=== PATIENT | female | born 1995 | race Caucasian/White ===

== ENCOUNTER 2016-04-06 20:32 | Emergency (ER) | payer MEDICAID ==
[~2016-04-06] VITALS: Ht 160 cm; Wt 68.2 kg
[~2016-04-06 20:32] MED LIST: CODE-54 PO; DCS100C PO; Ibuprofen PO; OMEP20CA12 PO; PREN1TAB19 PO
--- OUTSIDE RECORDS SUMMARY | 2016-04-06 20:39 | XMS REPORT | Continuity of Care Document ---
Author Author [facility] Organization [facility] Address Unknown Phone Unavailable Care Team Providers Care Greenhouse Instructor Name Role Phone RUBÉN MENDEZ DO PCP Insurance Providers Payer Name Policy Number Subscriber Name Relationship [facility] [id number] Yasmine Wren 18 Self / Same As Patient Advance Directives Directive Response Recorded Date/Time Advance Directives No 10/30/13 2:53am Health Care Power of Supervising Bailiff No 10/30/13 2:53am Organ Donor Yes 10/30/13 2:53am Resuscitation Status Full Code 10/30/13 2:53am Problems No known problems or medical conditions. Medications Medication Dose Route Sig Days/Qty Instructions Order Date Discontinued Date Status Omeprazole 1 Cap PO DAILY 30 Qty 12/23/11 10/28/13 Discontinued Vit/Fe Fumarate/Fa 1 Each PO DAILY 10/28/13 Active Acetaminophen/Codeine 1-2 Tab PO EVERY 4HRS PRN MODERATE TO SEVERE PAIN 30 Qty 11/01/13 Active Docusate Sodium 100 Mg PO TWICE A DAY 20 Qty 11/01/13 Active [Ibuprofen] 600 Mg PO EVERY 6 HOURS 60 Qty 11/01/13 Active Social History Social History Problem Response Recorded Date/Time Alcohol Use Denies Use 10/30/2013 11:42am Recreational Drug Use No 10/30/2013 11:42am Recent Foreign Travel No 10/30/2013 11:42am Recent Infectious Disease Exposure No 10/30/2013 11:42am Hospitalization with Isolation Denies 11/01/2013 7:07pm Smoking Status Current Everyday Smoker 10/30/2013 2:52am Do you dip or chew tobacco? No 10/30/2013 2:52am Query Response Start Date Stop Date Smoking Status Current Everyday Smoker Hospital Discharge Instructions Patient Instructions Physician Instructions New, Converted or Re-Newed RX: Call to Patients Pharmacy Additional Follow Up: Yes Orders/Referrals Follow-up [address] Mendez Activity: Activity as Tolerated Driving Instructions: No Driving for 1 Week NO SMOKING: NO SMOKING Nothing Inside Vagina: No Douching, No [place], No Tampons Discharge Diet: No Restrictions Symptoms to Report to : Pain Increased, Fever Over 101 Degrees F, Vaginal Bleeding Increase, Cramps in Feet or Legs, Lightheadedness For Any Problems or Questions: Contact Your Physician Bathing Instructions: Shower Plan of Care Discharge Date 11/01/13 6:30pm Disposition 01 HOME, SELF-CARE Instructions/Education Provided DISCHARGE VAGINAL DELIVERY DISCHARGE Prescriptions See Medications Section Referrals RUBÉN MENDEZ DO (Unspecified) 12/12/13 Address: [address] [place] [address] Functional Status Query Response Date Recorded Patient Orientation Person Place Time Situation Normal For Age November 01, 2013 7:07pm Allergies, Adverse Reactions, Alerts Allergen Type Severity Reaction Status Last Updated No Known Drug Allergies Active 07/02/09 Immunizations Name Given Type Date of Influenza Vaccine 10/26/11 Historical Hepatitis A Yes Historical Hepatitis B Yes Historical Tetanus Booster (TDap) Unknown Historical Tdap 11/01/13 Administered Tdap 11/01/13 Administered Vital Signs Acute Vital Signs Vital Response Date/Time Temperature (Fahrenheit) 98.2 degrees F (97.6 - 99.5) Temperature (Calculated Celsius) 36.11137 degrees C (36.4 - 37.5) Temperature Source Tympanic Pulse Rate (adult) 90 bpm (60 - 90) Respiratory Rate 18 bpm (12 - 24) O2 Sat by Pulse Oximetry 97 % (88 - 100) Blood Pressure 98/53 mm Hg Pain Pain Intensity 3 Pain Pain Intensity 3 Height (Feet) 5 feet Height (Inches) 3.00 inches Height (Calculated Centimeters) 160.957969 cm Weight (Pounds) 174 pounds Weight (Ounces) 4.0 oz Weight (Calculated Grams) 50785.073 gm Weight (Calculated Kilograms) 78.590012 kilograms Calculated BMI 30.82 Results Test Source Date Result Interp. Ref. Range Comments Alanine Aminotransferase (ALT/SGPT) December 23, 2011 1:00pm 37 U/L N 30- 65 Albumin December 23, 2011 1:00pm 4.8 G/DL N 3.4-5.0 Alkaline Phosphatase December 23, 2011 1:00pm 117 U/L N 60-350 Amylase Level December 23, 2011 1:00pm 54 U/L N 25-115 Aspartate Amino Transf (AST/SGOT) December 23, 2011 1:00pm 19 U/L N 15- 37 BUN/Creatinine Ratio December 23, 2011 1:00pm 11 - Band Neutrophils July 02, 2009 9:52am 0 % - Basophils # (Auto) December 23, 2011 1:00pm 0.1 10^3/uL N 0.0-0.1 Basophils % (Manual) July 02, 2009 9:52am 0 % - Basophils (%) (Auto) December 23, 2011 1:00pm 1 % N 0-10 Blood Urea Nitrogen December 23, 2011 1:00pm 11 MG/DL N 7-18 Calcium Level December 23, 2011 1:00pm 9.3 MG/DL N 8.5-10.1 Carbon Dioxide Level December 23, 2011 1:00pm 32 MMOL/L N 21-32 Chloride Level December 23, 2011 1:00pm 100 MMOL/L L 101-110 Creatinine December 23, 2011 1:00pm 1.0 MG/DL N 0.6-1.3 Eosinophils # (Auto) December 23, 2011 1:00pm 0.1 10^3/uL N 0.0-0.3 Eosinophils % (Manual) July 02, 2009 9:52am 2 % - Eosinophils (%) (Auto) December 23, 2011 1:00pm 1 % N 0-10 Glucose Level December 23, 2011 1:00pm 83 MG/DL N 74-106 Hematocrit December 23, 2011 1:00pm 45 % N 35-52 Hemoglobin December 23, 2011 1:00pm 15.6 G/DL N 11.5-16.0 Lipase December 23, 2011 1:00pm 126 U/L N 73-393 Lymphocytes # (Auto) December 23, 2011 1:00pm 2.7 X 10^3 N 1.0-4.0 Lymphocytes % (Manual) July 02, 2009 9:52am 19 % - Lymphocytes (%) (Auto) December 23, 2011 1:00pm 29 % N 12-44 Magnesium Level July 04, 2009 6:55am 1.6 MG/DL L 1.8-2.4 Mean Corpuscular Hemoglobin December 23, 2011 1:00pm 30 PG N 25-34 Mean Corpuscular Hemoglobin Concent December 23, 2011 1:00pm 35 G/DL N 32 -36 Mean Corpuscular Volume December 23, 2011 1:00pm 85 FL N 80-99 Mean Platelet Volume December 23, 2011 1:00pm 11.2 FL H 7.4-10.4 Monocytes # (Auto) December 23, 2011 1:00pm 0.6 X 10^3 N 0.0-1.0 Monocytes % (Manual) July 02, 2009 9:52am 6 % - Monocytes (%) (Auto) December 23, 2011 1:00pm 6 % N 0-12 Neutrophils # (Auto) December 23, 2011 1:00pm 5.9 X 10^3 N 1.8-7.8 Neutrophils % (Manual) July 02, 2009 9:52am 70 % - Neutrophils (%) (Auto) December 23, 2011 1:00pm 63 % N 42-75 Platelet Count December 23, 2011 1:00pm 329 10^3/uL N 130-400 Potassium Level December 23, 2011 1:00pm 3.4 MMOL/L L 3.6-5.0 Reactive Lymphocytes July 02, 2009 9:52am 3 % - Red Blood Count December 23, 2011 1:00pm 5.24 10^6/uL N 4.35-5.85 Red Cell Distribution Width December 23, 2011 1:00pm 12.6 % N 10.0-14.5 Sodium Level December 23, 2011 1:00pm 138 MMOL/L N 135-145 Total Bilirubin December 23, 2011 1:00pm 0.4 MG/DL N 0.0-1.0 Total Protein December 23, 2011 1:00pm 9.0 G/DL H 6.4-8.2 Urine Bacteria July 02, 2009 9:56am LARGE H - Has specimen been collected/obtained? YSpecimen Description CLEAN CATCH Urine Bilirubin July 02, 2009 9:56am NEGATIVE - Has specimen been collected/obtained? YSpecimen Description CLEAN CATCH Urine Casts July 02, 2009 9:56am NONE - Has specimen been collected/ obtained? YSpecimen Description CLEAN CATCH Urine Clarity July 02, 2009 9:56am CLEAR - Has specimen been collected /obtained? YSpecimen Description CLEAN CATCH Urine Color July 02, 2009 9:56am YELLOW - Has specimen been collected/ obtained? YSpecimen Description CLEAN CATCH Urine Crystals July 02, 2009 9:56am NONE - Has specimen been collected /obtained? YSpecimen Description CLEAN CATCH Urine Culture Indicated July 02, 2009 9:56am YES - Has specimen been collected/obtained? YSpecimen Description CLEAN CATCH Urine Glucose (UA) July 02, 2009 9:56am NEGATIVE - Has specimen been collected/obtained? YSpecimen Description CLEAN CATCH Urine Ketones July 02, 2009 9:56am NEGATIVE - Has specimen been collected/obtained? YSpecimen Description CLEAN CATCH Urine Leukocyte Esterase July 02, 2009 9:56am NEGATIVE - Has specimen been collected/obtained? YSpecimen Description CLEAN CATCH Urine Mucus July 02, 2009 9:56am SMALL H - Has specimen been collected/ obtained? YSpecimen Description CLEAN CATCH Urine Nitrite July 02, 2009 9:56am NEGATIVE - Has specimen been collected/obtained? YSpecimen Description CLEAN CATCH Urine Test February 01, 2012 1:10pm NEGATIVE - Comments to Supervisor [place] Pool: PREOPSpecimen Comment: URINE IN LAB ALREADY Urine Protein July 02, 2009 9:56am NEGATIVE - Has specimen been collected/obtained? YSpecimen Description CLEAN CATCH Urine RBC July 02, 2009 9:56am NONE /HPF - Has specimen been collected /obtained? YSpecimen Description CLEAN CATCH Urine Specific [place] July 02, 2009 9:56am 1.010 L - Has specimen been collected/obtained? YSpecimen Description CLEAN CATCH Urine Squamous Epithelial Cells July 02, 2009 9:56am 5-10 - Has specimen been collected/obtained? YSpecimen Description CLEAN CATCH Urine Urobilinogen July 02, 2009 9:56am NORMAL MG/DL - Has specimen been collected/obtained? YSpecimen Description CLEAN CATCH Urine WBC July 02, 2009 9:56am 2-5 /HPF - Has specimen been collected/ obtained? YSpecimen Description CLEAN CATCH Urine pH July 02, 2009 9:56am 7.0 - Has specimen been collected/ obtained? YSpecimen Description CLEAN CATCH White Blood Count December 23, 2011 1:00pm 9.3 10^3/uL N 4.3-11.0 Blood Morphology Comment July 02, 2009 9:52am NORMAL - Urine RBC (Auto) July 02, 2009 9:56am NEGATIVE - Has specimen been collected/obtained? YSpecimen Description CLEAN CATCH Gram Stain Other July 03, 2009 5:45pm Urine Culture Urine-Clean Catch July 02, 2009 9:56am Procedures No known history of procedures. Encounters Encounter Location Date/Time Discharged Inpatient Via [facility] 10/30/13 7:58am Departed Clinic Via [facility] 10/28/13 2:03pm
[2016-04-06] MEDS ORDERED: NS IV 1000 ML 1,000 ML IV ONE (21:59)
[2016-04-06] MEDS ORDERED: ONDANSETRON 4 MG/2 ML (SDV) Z0FRAN IVP ONE (22:00)
--- NOTE | 2016-04-06 22:05 | ED GU-Female ---
General Chief Complaint: Abdominal/GI Problems Stated Complaint: 5 WKS PREG/VOMITING Nursing Triage Note: Pt c/o nausea x1 week and vomiting x5 today. Pt reports she is but has not yet been to doctor for first appt. LMP 02/24/16 Nursing Sepsis Screen: No Definite Risk Source: patient Exam Limitations: no limitations History of Present Illness Time seen by provider: 22:05 Initial Comments 21-year-old female patient presents to the emergency department with complaints of vomiting 5 today. Patient reports having nausea for approximately one week. Patient states she recently found out she was and has her first appointment in a couple of weeks. Last ventral. 02/24/16. Denies vaginal discharge, vaginal bleeding, fever, dysuria, frequency, hematuria. Timing/Duration: week, intermittent Severity/Quality: mild Activities at Onset: none Prior Genitourinary Problems: none Sexual [place] History: less than 2 months ago, single partner Modifying Factors: Worsens With Eating Allergies and Home Medications Allergies Coded Allergies: No Known Drug Allergies (Unverified , 07/02/09) Home Medications Cephalexin 500 Mg Capsule #9 500 MG PO TID Prescribed by: KUSH CASTRO on 04/06/16 2321 Cephalexin 500 Mg Tablet #14 500 MG PO BID Prescribed by: GARTH ABRAHAM on 04/10/16 1121 Doxylamine/Pyridoxine HCl 1 Each Tablet.dr #30 1 EACH PO BID PRN PRN NAUSEA/ VOMITING Prescribed by: KUSH CASTRO on 04/06/16 2321 Ondansetron 4 Mg Tab.rapdis #30 4 MG PO Q6H PRN PRN NAUSEA/VOMITING Prescribed by: GARTH ABRAHAM on 04/10/16 1121 Constitutional: No chills, No diaphoresis, No dizziness, No fever, No malaise EENTM: no symptoms reported Respiratory: no symptoms reported Cardiovascular: no symptoms reported Gastrointestinal: No abdominal pain, No constipation, No diarrhea, loss of appetite nausea vomiting Genitourinary: denies burning, denies discharge, denies dysuria, denies frequency, denies flank pain, denies hematuria, denies pain : Yes LMP: Feb 24, 2016 Musculoskeletal: no symptoms reported Skin: no symptoms reported Psychiatric/Neurological: No Symptoms Reported All Other Systemes Reviewed Negative Unless Noted: Yes (Negative excepted noted.) Past Kwckfzb-Bveees-Jtevyx Hx Patient Social History Alcohol Use: Denies Use Recreational Drug Use: No Smoking Status: Never a Smoker Recent Foreign Travel: No Contact w/Someone Who Travel: No Recent Infectious Disease Expo: No Recent Hopitalizations: No Immunizations Up To Date Tetanus Booster (TDap): Unknown PED Vaccines UTD: No Date of Influenza Vaccine: Oct 26, 2011 Seasonal Allergies Seasonal Allergies: No Surgeries HX Surgeries: Yes Surgeries: Appendectomy Respiratory Hx Respiratory Disorders: No Cardiovascular Hx Cardiac Disorders: No Neurological Hx Neurological Disorders: No Reproductive System : Yes Hx : 0 Hx Para: 0 Hx Total # of Abortions (Spona: 0 Hx Reproductive Disorders: No Female Reproductive Disorders: Denies Genitourinary Hx Genitourinary Disorders: No Gastrointestinal Hx Gastrointestinal Disorders: Yes Gastrointestinal Disorders: Hiatal Hernia, Ulcer Musculoskeletal Hx Musculoskeletal Disorders: No Endocrine Hx Endocrine Disorders: No HEENT HX ENT Disorders: No Cancer Hx Cancer: No Psychosocial Hx Psychiatric Problems: No Integumentary HX Skin/Integumentary Disorder: No Blood Transfusions Hx Blood Disorders: No Adverse Reaction to a Blood Tr: No Reviewed Nursing Assessment Reviewed/Agree w Nursing PMH: Yes Family Medical History Significant Family History: No Pertinent Family Hx Physical Exam Vital Signs Capillary Refill : Less Than 3 Seconds General Appearance: WD/WN no apparent distress HEENT: PERRL/EOMI pharynx normal Neck: supple normal inspection Cardiovascular: normal peripheral pulses regular rate, rhythm no edema no murmur Respiratory: lungs clear normal breath sounds no respiratory distress Gastrointestinal: normal bowel sounds non tender soft no organomegalyNo distended Back: normal inspection no CVA tenderness Extremities: no pedal edema normal capillary refill Neurologic/Psychiatric: alert normal mood/affect oriented x 3 Skin: normal color warm/dry Progress/Results/Core Measures Results/Orders Lab Results My Orders Medications Given in ED Vital Signs/I&O Blood Pressure Mean: 74 Departure Communication Progress Notes Laboratory findings discussed with the patient. Patient reports feeling better with IV fluids and medications. Proceed with discharge to home. All return precautions were discussed with the patient as described in the discharge instructions of this report. Patient voices understanding and agrees with the treatment plan. Patient case discussed with Dr. Baptiste, he agrees with the plan of care. Impression Impression: Primary Impression: Volume depletion Additional Impressions: Nausea & vomiting Qualified Code: R11.2 - Nausea with vomiting, unspecified with 5 completed weeks gestation Disposition: 01 HOME, SELF-CARE Condition: Improved Departure-Patient Inst. Decision time for Depature: 23:20 Referrals: RUBÉN MENDEZ DO (PCP/Family) Primary Care Physician Patient Instructions: Nausea and Vomiting of (DC), - The Second Month Add. Discharge Instructions: All discharge instructions reviewed with patient and/or family. Voiced understanding. Medications as instructed. Tylenol [id number] as directed for pain or fever. Drink plenty of fluids. Rest. Follow-up with Dr. Mendez as previously scheduled. Return to the emergency department for worsened vomiting, decreased urination, dizziness, shortness of air, chest pain , vaginal discharge, vaginal bleeding with greater than 2 pads per hour for greater than 2 hours, or any other concerns. Scripts Cephalexin 500 Mg [id number] Mg PO TID #9 CAP Ref 0 Prov:KUSH CASTRO 04/06/16 Doxylamine/Pyridoxine HCl (Diclegis Dr 10-10 mg Tablet)1 Each Tablet.dr1 Each PO BID PRN NAUSEA/VOMITING #30 TAB Ref 0 Prov:KUSH CASTRO 04/06/16 KUSH CASTRO Apr 06, 2016 22:05 Chloride Level 104 98-107 MMOL/L Creatinine 0.73 0.60-1.30 MG/DL Eosinophils # (Auto) 0.1 0.0-0.3 10^3/uL Eosinophils (%) (Auto) 1 0-10 % Estimat Glomerular Filtration Rate > 60 Glucose Level 84 70-105 MG/DL Hematocrit 41 35-52 % Hemoglobin 14.5 11.5-16.0 G/DL Lymphocytes # (Auto) 2.9 1.0-4.0 X 10^3 Lymphocytes (%) (Auto) 21 12-44 % Mean Corpuscular Hemoglobin 30 25-34 PG Mean Corpuscular Hemoglobin Concent 35 32-36 G/DL Mean Corpuscular Volume 83 80-99 FL Mean Platelet Volume 11.2 H 7.4-10.4 FL Monocytes # (Auto) 0.7 0.0-1.0 X 10^3 Monocytes (%) (Auto) 5 0-12 % Neutrophils # (Auto) 9.6 H 1.8-7.8 X 10^3 Neutrophils (%) (Auto) 72 42-75 % Platelet Count 261 130-400 10^3/uL Potassium Level 3.6 3.6-5.0 MMOL/L Red Blood Count 4.92 4.35-5.85 10^6/uL Red Cell Distribution Width 12.8 10.0-14.5 % Sodium Level 136 135-145 MMOL/L Total Bilirubin 0.6 0.1-1.0 MG/DL Total Protein 7.3 6.4-8.2 G/DL White Blood Count 13.3 H 4.3-11.0 10^3/uL My Orders Orders-KUSH CASTRO Cbc With Automated Diff (04/06/16 21:59) Comprehensive Metabolic Panel (04/06/16 21:59) Ua Culture If Indicated (04/06/16 21:59) Urine Bedside (04/06/16 21:59) Ns Iv 1000 Ml (Sodium Chloride 0.9%) (04/06/16 21:59) Ondansetron Injection (Zofran Injectio (04/06/16 22:00) Saline Lock/Iv-Start (04/06/16 22:40) Medications Given in ED Current Medications Medications Dose Ordered Sig/Kelsey Route Start Time Stop Time Status Last Admin Dose Admin Ondansetron HCl 4 mg ONCE ONCE IVP 04/06/16 22:00 04/06/16 22:01 DC 04/06/16 22:41 4 MG Sodium Chloride 1,000 ml @ 0 mls/hr Q0M ONCE IV 04/06/16 21:59 04/06/16 22:00 DC 04/06/16 22:41 999 MLS/HR Vital Signs/I&O Vital Sign - Last 12Hours 04/06/16 21:28 Temp 96.8 Pulse 69 Resp 18 B/P 103/59 Pulse Ox 100 O2 Delivery Room Air Blood Pressure Mean: 74 Departure Impression Impression: Primary Impression: Volume depletion Additional Impressions: Nausea & vomiting Qualified Code: R11.2 - Nausea with vomiting, unspecified with 5 completed weeks gestation Disposition: 01 HOME, SELF-CARE Condition: Improved Departure-Patient Inst. Decision time for Depature: 23:20 Referrals: RUBÉN MENDEZ DO (PCP/Family) Primary Care Physician Patient Instructions: Nausea and Vomiting of (DC), - The Second Month Add. Discharge Instructions: All discharge instructions reviewed with patient and/or family. Voiced understanding. Medications as instructed. Tylenol [id number] as directed for pain or fever. Drink plenty of fluids. Rest. Follow-up with Dr. Mendez as previously scheduled. Return to the emergency department for worsened vomiting, decreased urination, dizziness, shortness of air, chest pain , vaginal discharge, vaginal bleeding with greater than 2 pads per hour for greater than 2 hours, or any other concerns. Scripts Cephalexin 500 Mg [id number] Mg PO TID #9 CAP Ref 0 Prov:KUSH CASTRO 04/06/16 Doxylamine/Pyridoxine HCl (Diclegis Dr 10-10 mg Tablet)1 Each Tablet.dr1 Each PO BID PRN NAUSEA/VOMITING #30 TAB Ref 0 Prov:KUSH CASTRO 04/06/16 KUSH CASTRO Apr 06, 2016 22:05
[2016-04-06 22:16] LABS: BILIRUBIN,URINE NEGATIVE (NEGATIVE); KETONES,URINE 4+ (NEGATIVE); LEUKOCYTE ESTERASE ,URINE 2+ (NEGATIVE); NITRITE,URINE NEGATIVE (NEGATIVE); PH,URINE 6 (5-9); PROTEIN,URINE NEGATIVE (NEGATIVE); UROBILINOGEN,URINE NORMAL (NORMAL)
[2016-04-06 22:48] LABS: BASOPHILS # (AUTO) 0.1 10^3/uL (0.0-0.1); BASOPHILS % (AUTO) 1 % (0-10); EOSINOPHILS # (AUTO) 0.1 10^3/uL (0.0-0.3); EOSINOPHILS % (AUTO) 1 % (0-10); LYMPHOCYTES # (AUTO) 2.9 X 10^3 (1.0-4.0); LYMPHOCYTES % (AUTO) 21 % (12-44); MEAN CORPUSCULAR HEMOGLOBIN 30 PG (25-34); MEAN CORPUSCULAR HGB CONC 35 G/DL (32-36); MEAN CORPUSCULAR VOLUME 83 FL (80-99); MEAN PLATELET VOLUME 11.2 FL (7.4-10.4); MONOCYTES # (AUTO) 0.7 X 10^3 (0.0-1.0); MONOCYTES % (AUTO) 5 % (0-12); NEUTROPHILS # (AUTO) 9.6 X 10^3 (1.8-7.8); NEUTROPHILS % (AUTO) 72 % (42-75); PLATELET COUNT 261 10^3/uL (130-400); RED BLOOD COUNT 4.92 10^6/uL (4.35-5.85); RED CELL DISTRIBUTION WIDTH 12.8 % (10.0-14.5); WHITE BLOOD COUNT 13.3 10^3/uL (4.3-11.0)
[2016-04-06 23:08] LABS: ALANINE AMINOTRANSFERASE 25 U/L (0-55); ALBUMIN 4.5 G/DL (3.2-4.5); ANION GAP 13 MMOL/L (5-14); ASPARTATE AMINO TRANSFERASE 24 U/L (5-34); BILIRUBIN,TOTAL 0.6 MG/DL (0.1-1.0); BLOOD UREA NITROGEN 10 MG/DL (7-18); BUN/CREATININE RATIO 14; CALCIUM 9.4 MG/DL (8.5-10.1); CARBON DIOXIDE 19 MMOL/L (21-32); CHLORIDE 104 MMOL/L (98-107); CREATININE SERUM 0.73 MG/DL (0.60-1.30); GFR ESTIMATED > 60; GLUCOSE 84 MG/DL (70-105); POTASSIUM 3.6 MMOL/L (3.6-5.0); SODIUM 136 MMOL/L (135-145); TOTAL PROTEIN 7.3 G/DL (6.4-8.2)
[2016-04-06] MEDS ORDERED: CEPH500C PO (23:21)
[2016-04-06] MEDS ORDERED: DOXY1TAB3 PO (23:21)
[2016-04-06] MEDS ORDERED: RX-ONDANSETRON 4 MG ODT (ZOFRAN) PPK #4 PO STA (23:26)
[2016-04-06 23:51] VITALS: BP 96/61
== END 2016-04-06 23:51 | disposition home or self-care (01) ==
LOC: EDUNIT# 20:32 → ER 20:35
DX: O21.1 Hyperemesis gravidarum with metabolic disturbance (principal); Z3A.01 Less than 8 weeks gestation of pregnancy
CPT/HCPCS: 36415; 80053; 81000; 84703; 85025; 96361; 96374

== ENCOUNTER 2016-04-10 09:11 | Emergency (ER) | payer MEDICAID ==
[~2016-04-10] VITALS: Ht 160 cm; Wt 68.0 kg
[~2016-04-10 09:11] MED LIST changes: +CEPH500C PO; +DOXY1TAB3 PO
--- OUTSIDE RECORDS SUMMARY | 2016-04-10 09:18 | XMS REPORT | Continuity of Care Document ---
Author Author [facility] Organization [facility] Address Unknown Phone Unavailable Care Team Providers Care Computer Systems Design Analyst Name Role Phone RUBÉN MENDEZ DO PCP Insurance Providers Payer Name Policy Number Subscriber Name Relationship [facility] [id number] Yasmine Wren 18 Self / Same As Patient Advance Directives Directive Response Recorded Date/Time Advance Directives No 10/30/13 2:53am Health Care Power of Shield Installer No 10/30/13 2:53am Organ Donor Yes 10/30/13 [...] SMOKING Nothing Inside Vagina: No Douching, No [place], No Tampons Discharge Diet: No Restrictions Symptoms [...] Referrals RUBÉN MENDEZ DO (Unspecified) 12/12/13 Address: [address] [place] [address] Functional Status Query Response Date Recorded Patient [...] F (97.6 - 99.5) Temperature (Calculated Celsius) 36.01454 degrees C (36.4 - 37.5) Temperature Source Tympanic Pulse Rate (adult) 90 bpm (60 - 90) Respiratory Rate 18 bpm (12 - 24) O2 Sat by Pulse Oximetry 97 % (88 - 100) Blood Pressure 98/53 mm Hg Pain Pain Intensity 3 Pain Pain Intensity 3 Height (Feet) 5 feet Height (Inches) 3.00 inches Height (Calculated Centimeters) 160.950512 cm Weight (Pounds) 174 pounds Weight (Ounces) 4.0 oz Weight (Calculated Grams) 81708.073 gm Weight (Calculated Kilograms) 78.941318 kilograms Calculated BMI 30.82 Results Test Source [...] 01, 2012 1:10pm NEGATIVE - Comments to Manager Utilities: PREOPSpecimen Comment: URINE IN LAB ALREADY Urine Protein July 02, 2009 9:56am NEGATIVE - Has specimen been collected/obtained? YSpecimen Description CLEAN CATCH Urine RBC July 02, 2009 9:56am NONE /HPF - Has specimen been collected /obtained? YSpecimen Description CLEAN CATCH Urine Specific [place] July 02, 2009 9:56am 1.010 L - [...] Encounters Encounter Location Date/Time Discharged Inpatient Via [facility] 10/30/13 7:58am Departed Clinic Via [facility] 10/28/13 2:03pm
[2016-04-10] MEDS ORDERED: NS IV 1000 ML 1,000 ML IV ONE (09:22)
[2016-04-10 09:47] LABS: BASOPHILS # (AUTO) 0.1 10^3/uL (0.0-0.1); BASOPHILS % (AUTO) 1 % (0-10); EOSINOPHILS # (AUTO) 0.1 10^3/uL (0.0-0.3); EOSINOPHILS % (AUTO) 1 % (0-10); LYMPHOCYTES % (AUTO) 17 % (12-44); MEAN CORPUSCULAR HEMOGLOBIN 30 PG (25-34); MEAN CORPUSCULAR HGB CONC 36 G/DL (32-36); MEAN CORPUSCULAR VOLUME 84 FL (80-99); MEAN PLATELET VOLUME 11.2 FL (7.4-10.4); MONOCYTES # (AUTO) 0.9 X 10^3 (0.0-1.0); MONOCYTES % (AUTO) 7 % (0-12); NEUTROPHILS # (AUTO) 8.9 X 10^3 (1.8-7.8); NEUTROPHILS % (AUTO) 75 % (42-75); PLATELET COUNT 197 10^3/uL (130-400); RED BLOOD COUNT 5.07 10^6/uL (4.35-5.85); RED CELL DISTRIBUTION WIDTH 12.7 % (10.0-14.5); WHITE BLOOD COUNT 11.9 10^3/uL (4.3-11.0)
[2016-04-10] MEDS ORDERED: PROMETHAZINE INJ 25 MG/ML (PHENERGAN) AMP IVP STA ×2 (09:48→10:51)
--- NOTE | 2016-04-10 10:00 | ED GI ---
General Chief Complaint: -Female Stated Complaint: VOMITING 6 WKS PREG Nursing Triage Note: AMBULATED TO ROOM 07 WITHOUT DIFFICULTY. STATES SHE HAS BEEN VOMITING SINCE SHE FOUND OUT SHE WAS PREG. WAS SEEN HERE ET PRESCRIBED CEPHALEXIN (SHE FINISHED) AND DICLEGIS FOR NAUSEA WHICH HER INSURANCE WOULD NOT PAY FOR SINCE IT WAS NOT PRESCRIBED FROM HER PRIMARY. PRIMARY PRESCRIBED VIT B6 WHICH SHE CAN NOT KEEP DOWN. Sepsis Screen: No Definite Risk Source of Information: Patient Exam Limitations: No Limitations History of Present Illness Time Seen By Provider: 09:45 Initial Comments Here with report of vomiting for several days. She is and is having problems with vomiting during . She is not better despite prescriptions. She has not been unable to keep anything down. She is reporting constipation. She denies any significant pain or fever. This is her second . Timing/Duration: 4-5 Days Severity/Quality: Moderate, Other (nausea and vomiting) Location: Other (no significant pain) Radiation: No Radiation Modifying Factors: Worsens With Eating Associated Symptoms: No Fever/Chills, Nausea/VomitingNo Shortness of Air, No Weakness Allergies and Home Medications Allergies Coded Allergies: No Known Drug Allergies (Unverified , 07/02/09) Home Medications Cephalexin 500 Mg Capsule #9 500 MG PO TID Prescribed by: KUSH CASTRO on 04/06/162320 Cephalexin 500 Mg Tablet #14 500 MG PO BID Prescribed by: GARTH ABRAHAM on 04/10/16 1121 Doxylamine/Pyridoxine HCl 1 Each Tablet.dr #30 1 EACH PO BID PRN PRN NAUSEA/ VOMITING Prescribed by: KUSH CASTRO on 04/06/16 232 Ondansetron 4 Mg Tab.rapdis #30 4 MG PO Q6H PRN PRN NAUSEA/VOMITING Prescribed by: GARTH ABRAHAM on 04/10/16 1121 Review of Systems Constitutional: see HPINo chills, No fever EENTM: No Symptoms Reported Respiratory: No Symptoms Reported Cardiovascular: No Symptoms Reported Gastrointestinal: See HPI ConstipatedDenies Diarrhea, Nausea Vomiting Genitourinary: Denies Frequency, Denies Incontinence, Denies Pain, Denies Urgency Musculoskeletal: no symptoms reported Skin: no symptoms reported Psychiatric/Neurological: No Symptoms Reported All Other Systems Reviewed Negative Unless Noted: Yes Past Pqoayap-Udsdyr-Chhmyq Hx Patient Social History Alcohol Use: Denies Use Recreational Drug Use: No Smoking Status: Never a Smoker Recent Foreign Travel: No Contact w/Someone Who Travel: No Recent Infectious Disease Expo: No Recent Hopitalizations: No Immunizations Up To Date Tetanus Booster (TDap): Unknown PED Vaccines UTD: No Date of Influenza Vaccine: Oct 26, 2011 Seasonal Allergies Seasonal Allergies: No Surgeries HX Surgeries: Yes Surgeries: Appendectomy Respiratory Hx Respiratory Disorders: No Cardiovascular Hx Cardiac Disorders: No Neurological Hx Neurological Disorders: No Reproductive System : Yes Hx Reproductive Disorders: No Genitourinary Hx Genitourinary Disorders: No Gastrointestinal Hx Gastrointestinal Disorders: Yes Gastrointestinal Disorders: Hiatal Hernia, Ulcer Musculoskeletal Hx Musculoskeletal Disorders: No Endocrine Hx Endocrine Disorders: No HEENT HX ENT Disorders: No Cancer Hx Cancer: No Psychosocial Hx Psychiatric Problems: No Integumentary HX Skin/Integumentary Disorder: No Blood Transfusions Hx Blood Disorders: No Adverse Reaction to a Blood Tr: No Reviewed Nursing Assessment Reviewed/Agree w Nursing PMH: Yes Family Medical History Significant Family History: No Pertinent Family Hx Physical Exam Vital Signs VS - Last 72 Hours, by Label 04/10/16 04/10/16 09:21 13:00 Temp 97.2 Pulse 96 78 Resp 18 16 B/P 149/82 Pulse Ox 100 98 O2 Delivery Room Air Capillary Refill : Less Than 3 Seconds General Appearance: WD/WN no apparent distress HEENT: PERRL/EOMI pharynx normal Neck: full range of motion supple Respiratory: lungs clear normal breath sounds Cardiovascular: regular rate, rhythm no murmur Gastrointestinal: non tender soft Extremities: non-tender normal inspection Back: normal inspection no CVA tenderness no vertebral tenderness Neurologic/Psychiatric: alert oriented x 3 Skin: normal color warm/dry Progress/Results/Core Measures Results/Orders Lab Results Laboratory Tests Test 04/10/16 09:40 04/10/16 10:25 Range/Units Alanine Aminotransferase (ALT/SGPT) 25 0-55 U/L Albumin 4.5 3.2-4.5 G/DL Alkaline Phosphatase 58 40-136 U/L Anion Gap 14 5-14 MMOL/L Aspartate Amino Transf (AST/SGOT) 28 5-34 U/L BUN/Creatinine Ratio 17 Basophils # (Auto) 0.1 0.0-0.1 10^3/uL Basophils (%) (Auto) 1 0-10 % Blood Urea Nitrogen 13 7-18 MG/DL Calcium Level 9.2 8.5-10.1 MG/DL Carbon Dioxide Level 22 21-32 MMOL/L Chloride Level 101 98-107 MMOL/L Creatinine 0.77 0.60-1.30 MG/DL Eosinophils # (Auto) 0.1 0.0-0.3 10^3/uL Eosinophils (%) (Auto) 1 0-10 % Estimat Glomerular Filtration Rate > 60 Glucose Level 85 70-105 MG/DL Hematocrit 42 35-52 % Hemoglobin 15.1 11.5-16.0 G/DL Lymphocytes # (Auto) 2.0 1.0-4.0 X 10^3 Lymphocytes (%) (Auto) 17 12-44 % Mean Corpuscular Hemoglobin 30 25-34 PG Mean Corpuscular Hemoglobin Concent 36 32-36 G/DL Mean Corpuscular Volume 84 80-99 FL Mean Platelet Volume 11.2 H 7.4-10.4 FL Monocytes # (Auto) 0.9 0.0-1.0 X 10^3 Monocytes (%) (Auto) 7 0-12 % Neutrophils # (Auto) 8.9 H 1.8-7.8 X 10^3 Neutrophils (%) (Auto) 75 42-75 % Platelet Count 197 130-400 10^3/uL Potassium Level 3.8 3.6-5.0 MMOL/L Red Blood Count 5.07 4.35-5.85 10^6/uL Red Cell Distribution Width 12.7 10.0-14.5 % Sodium Level 137 135-145 MMOL/L Total Bilirubin 0.6 0.1-1.0 MG/DL Total Protein 7.3 6.4-8.2 G/DL White Blood Count 11.9 H 4.3-11.0 10^3/uL Urine Bacteria FEW H /HPF Urine Bilirubin NEGATIVE NEGATIVE Urine Casts NONE /LPF Urine Clarity CLEAR Urine Color YELLOW Urine Crystals NONE /LPF Urine Culture Indicated YES Urine Glucose (UA) NEGATIVE NEGATIVE Urine Ketones 4+ H NEGATIVE Urine Leukocyte Esterase 2+ H NEGATIVE Urine Mucus MODERATE H /LPF Urine Nitrite NEGATIVE NEGATIVE Urine Protein 2+ H NEGATIVE Urine RBC RARE /HPF Urine RBC (Auto) NEGATIVE NEGATIVE Urine Specific [place] 1.020 1.016-1.022 Urine Squamous Epithelial Cells 10-25 H /HPF Urine Urobilinogen 1 NORMAL MG/DL Urine WBC 5-10 H /HPF Urine pH 6.5 5-9 My Orders Orders-GARTH ABRAHAM MD Cbc With Automated Diff (04/10/16 09:22) Comprehensive Metabolic Panel (04/10/16 09:22) Ua Culture If Indicated (04/10/16 09:22) Saline Lock/Iv-Start (04/10/16 09:22) Ns Iv 1000 Ml (Sodium Chloride 0.9%) (04/10/16 09:22) Promethazine Injection (Phenergan Injec (04/10/16 09:48) Urine Culture (04/10/16 10:25) D5 Ns 1000 Ml Iv Solution (Dextrose 5%/0 (04/10/16 10:51) Promethazine Injection (Phenergan Injec (04/10/16 10:51) Ceftriaxone Injection (Rocephin Injectio (04/10/16 11:15) Medications Given in ED Current Medications Medications Dose Ordered Sig/Kelsey Route Start Time Stop Time Status Last Admin Dose Admin Ceftriaxone Sodium/Sodium Chloride 50 ml @ 100 mls/hr ONCE ONCE IV 04/10/16 11:15 04/10/16 11:44 DC 04/10/16 11:21 100 MLS/HR Sodium Chloride 1,000 ml @ 0 mls/hr Q0M ONCE IV 04/10/16 09:22 04/10/16 09:23 DC 04/10/16 09:46 1,000 MLS/HR Vital Signs/I&O Vital Sign - Last 12Hours 04/10/16 04/10/16 09:21 13:00 Temp 97.2 Pulse 96 78 Resp 18 16 B/P 149/82 Pulse Ox 100 98 O2 Delivery Room Air Blood Pressure Mean: 104 Progress Note : Progress Note Seen and evaluated. IV, labs and UA ordered. Normal saline 1 L bolus. Patient has distant nausea currently. Phenergan 12.5 mg IV ordered. Monitor patient. Repeat Phenergan 12.5 mg IV for persistent nausea. This did help. UA noted with UTI and 4+ ketones. D5NS 1 L bolus. Rocephin 1 g IV. I did discuss the case with Dr. Rosario at 1110. He is recommending outpatient Zofran due to persistent nausea and vomiting as outpatient and he will follow her. We will continue outpatient therapy of oral antibiotics as well. Discharged home with return precautions. Patient verbalize understanding instructions and agreement with plan. Departure Impression Impression: Primary Impression: Hyperemesis gravidarum Disposition: 01 HOME, SELF-CARE Condition: Stable Departure-Patient Inst. Decision time for Depature: 11:18 Referrals: [facility] (PCP/Family) Primary Care Physician RUBÉN ROSARIO DO Patient Instructions: Nausea and Vomiting of (DC) Add. Discharge Instructions: All discharge instructions reviewed with patient and/or family. Voiced understanding. Take medications as directed. Continue previous home medications. Follow-up with Dr. Rosario as scheduled. You may call his clinic for earlier appointment if not improving. Return for worse pain, fever, persistent vomiting, weakness or other concerns as needed. Scripts Ondansetron (Ondansetron Odt)4 Mg Tab.rapdis4 Mg PO Q6H PRN NAUSEA/VOMITING #30 TAB Ref 0 Prov:GARTH ABRAHAM MD 04/10/16 Cephalexin 500 Mg [id number] Mg PO BID #14 TAB Prov:GARTH ABRAHAM MD 04/10/16 Copy Copies To 1: RUBÉN ROSARIO TIMOTHY D MD Apr 10, 2016 09:59
[2016-04-10 10:08] LABS: ALANINE AMINOTRANSFERASE 25 U/L (0-55); ALBUMIN 4.5 G/DL (3.2-4.5); ANION GAP 14 MMOL/L (5-14); ASPARTATE AMINO TRANSFERASE 28 U/L (5-34); BILIRUBIN,TOTAL 0.6 MG/DL (0.1-1.0); BLOOD UREA NITROGEN 13 MG/DL (7-18); BUN/CREATININE RATIO 17; CALCIUM 9.2 MG/DL (8.5-10.1); CARBON DIOXIDE 22 MMOL/L (21-32); CHLORIDE 101 MMOL/L (98-107); CREATININE SERUM 0.77 MG/DL (0.60-1.30); GFR ESTIMATED > 60; GLUCOSE 85 MG/DL (70-105); POTASSIUM 3.8 MMOL/L (3.6-5.0); SODIUM 137 MMOL/L (135-145); TOTAL PROTEIN 7.3 G/DL (6.4-8.2)
[2016-04-10 10:38] LABS: BILIRUBIN,URINE NEGATIVE (NEGATIVE); KETONES,URINE 4+ (NEGATIVE); LEUKOCYTE ESTERASE ,URINE 2+ (NEGATIVE); NITRITE,URINE NEGATIVE (NEGATIVE); PH,URINE 6.5 (5-9); PROTEIN,URINE 2+ (NEGATIVE); UROBILINOGEN,URINE 1 MG/DL (NORMAL)
[2016-04-10] MEDS ORDERED: D5 NS 1000 ML IV SOLUTION 1,000 ML IV STA (10:51)
[2016-04-10] MEDS ORDERED: cefTRIAXone INJECTION 1,000 MG in NS (IVPB) 50 ML IV ONE (11:15)
[2016-04-10] MEDS ORDERED: CEPH500T PO (11:21)
[2016-04-10] MEDS ORDERED: ONDA4TAB11 PO (11:21)
[2016-04-10 13:00] VITALS: BP 100/50
== END 2016-04-10 13:00 | disposition home or self-care (01) ==
LOC: EDUNIT# 09:11 → ER 09:14
DX: O21.0 Mild hyperemesis gravidarum (principal); Z3A.01 Less than 8 weeks gestation of pregnancy
CPT/HCPCS: 36415; 80053; 81000; 85025; 87088; 96361; 96365; 96366; 96375; 96376

== ENCOUNTER 2016-05-10 23:38 | Emergency (ER) | payer MEDICAID ==
[~2016-05-10] VITALS: Ht 160 cm; Wt 64.9 kg
[~2016-05-10 23:38] MED LIST changes: +CEPH500T PO; +ONDA4TAB11 PO
--- OUTSIDE RECORDS SUMMARY | 2016-05-10 23:44 | XMS REPORT | Continuity of Care Document ---
Author Author [facility] Organization 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 Name Role Phone [facility] PCP Insurance Providers Payer Name Policy Number Subscriber Name Relationship [facility] [employer] [id number] Yasmine Wren 18 Self / Same As Patient Advance Directives Directive Response Recorded Date/Time Advance Directives No 04/10/16 9:24am Health Care Power of Corporate Paralegal No 04/06/16 9:28pm Organ Donor Yes 04/06/16 9:28pm Resuscitation Status Full Code 04/10/16 9:24am Chief Complaint and Reason for Visit Chief Complaint -Female Reason for Visit Hyperemesis gravidarum Problems Active Problems Medical Problem Onset Date Status Hyperemesis gravidarum Unknown Acute Nausea & vomiting Unknown Acute with 5 completed weeks gestation Unknown Acute Volume depletion Unknown Acute Medications Current Home Medications Medication Dose Units Route Directions Days/Qty Instructions Start Date Doxylamine/Pyridoxine Hcl 1 Each 1 Each Oral Twice A Day as needed for Nausea/Vomiting 30 04/06/16 Cephalexin 500 Mg 500 Mg Oral Three Times A Day 9 04/06/16 Cephalexin 500 Mg 500 Mg Oral Twice A Day 14 04/10/16 Ondansetron 4 Mg 4 Mg Oral Every 6 Hours as needed for Nausea/Vomiting 30 04/10/16 Past Home Medications Medication Directions Ordered Status Omeprazole 20 Mg Capsule.dr, 1 Cap Oral Daily 12/23/11 Discontinued Vit/Fe Fumarate/Fa 1 Each Tablet, 1 Each Oral Daily 10/28/13 Discontinued Acetaminophen/Codeine 1 Tab Tablet, 1-2 Tab Oral Every 4HRS as needed for Moderate To Severe Pain 11/01/13 Discontinued Docusate Sodium 100 Mg Cap, 100 Mg Oral Twice A Day 11/01/13 Discontinued [Ibuprofen] 600 Mg Tab, 600 Mg Oral Every 6 Hours 11/01/13 Discontinued Social History Social History Problem Response Recorded Date/Time Alcohol Use Denies Use 10/30/2013 11:42am Recreational Drug Use No 10/30/2013 11:42am Recent Foreign Travel No 10/30/2013 11:42am Recent Infectious Disease Exposure No 10/30/2013 11:42am Hospitalization with Isolation Denies 11/01/2013 7:07pm Smoking Status Never a Smoker 04/10/2016 9:24am Recent Hopitalizations No 04/10/2016 9:24am Hospitalization with Isolation Denies 11/01/2013 7:07pm Query Response Start Date Stop Date Smoking Status Never a Smoker Hospital Discharge Instructions No hospital discharge instructions. Plan of Care Discharge Date 04/10/16 1:00pm Disposition 01 HOME, SELF-CARE Condition at Discharge Stable Instructions/Education Provided Nausea and Vomiting of (DC) Prescriptions See Medication Section Referrals [facility] - Primary Care Physician [facility] - Primary Care Physician RUBÉN MENDEZ DO - Additional Instructions/Education All discharge instructions reviewed with patient and/or family. Voiced understanding. Take medications as directed. Continue previous home medications. Follow-up with Dr. Mendez as scheduled. You may call his clinic for earlier appointment if not improving. Return for worse pain, fever, persistent vomiting, weakness or other concerns as needed. Functional Status No functional status results. Allergies, Adverse Reactions, Alerts No known allergies. Immunizations No immunization records. Vital Signs Acute Vital Signs Vital Response Date/Time Temperature (Fahrenheit) 97.2 degrees F (97.6 - 99.5) 04/10/2016 9:21am Temperature (Calculated Celsius) 36.28015 degrees C (36.4 - 37.5) 04/10/2016 9:21am Temperature Source Tympanic 04/10/2016 9:21am Pulse Rate (adult) 78 bpm (60 - 90) 04/10/2016 1:00pm Respiratory Rate 16 bpm (12 - 24) 04/10/2016 1:00pm O2 Sat by Pulse Oximetry 98 % (88 - 100) 04/10/2016 1:00pm Blood Pressure 100/50 mm Hg 04/10/2016 1:00pm Blood Pressure Mean 104 mm Hg 04/10/2016 9:21am Pain Numeric Pain Scale 0-No Pain 04/10/2016 1:00pm Height (Feet) 5 feet 04/10/2016 9:21am Height (Inches) 3 inches 04/10/2016 9:21am Height (Calculated Centimeters) 160.558291 cm 04/10/2016 9:21am Weight (Pounds) 150 pounds 04/10/2016 9:21am Weight (Ounces) 4.0 oz 04/06/2016 9:28pm Weight (Calculated Grams) 89038.073 gm 04/06/2016 9:28pm Weight (Calculated Kilograms) 68.611388 kilograms 04/10/2016 9:21am Calculated BMI 30.82 04/06/2016 9:28pm Capillary Refill Capillary Refill Less Than 3 Seconds 04/10/2016 9:21am Results Laboratory Results Test Name Result Units Flags Reference Collection Date/Time Result Date/ Time Comments White Blood Count 13.3 10^3/uL H 4.3-11.0 04/06/2016 10:40pm 04/06/2016 10:49pm Red Blood Count 4.92 10^6/uL 4.35-5.85 04/06/2016 10:40pm 04/06/2016 10 :49pm Hemoglobin 14.5 G/DL 11.5-16.0 04/06/2016 10:40pm 04/06/2016 10:49pm Hematocrit 41 % 35-52 04/06/2016 10:40pm 04/06/2016 10:49pm Mean Corpuscular Volume 83 FL 80-99 04/06/2016 10:40pm 04/06/2016 10: 49pm Mean Corpuscular Hemoglobin 30 PG 25-34 04/06/2016 10:40pm 04/06/2016 10:49pm Mean Corpuscular Hemoglobin Concent 35 G/DL 32-36 04/06/2016 10:40pm 10:49pm Red Cell Distribution Width 12.8 % 10.0-14.5 04/06/2016 10:40pm 2016 10:49pm Platelet Count 261 10^3/uL 130-400 04/06/2016 10:40pm 04/06/2016 10: 49pm Mean Platelet Volume 11.2 FL H 7.4-10.4 04/06/2016 10:40pm 04/06/2016 10: 49pm Neutrophils (%) (Auto) 72 % 42-75 04/06/2016 10:40pm 04/06/2016 10: 49pm Lymphocytes (%) (Auto) 21 % 12-44 04/06/2016 10:40pm 04/06/2016 10: 49pm Monocytes (%) (Auto) 5 % 0-12 04/06/2016 10:40pm 04/06/2016 10:49pm Eosinophils (%) (Auto) 1 % 0-10 04/06/2016 10:40pm 04/06/2016 10:49pm Basophils (%) (Auto) 1 % 0-10 04/06/2016 10:40pm 04/06/2016 10:49pm Neutrophils # (Auto) 9.6 X 10^3 H 1.8-7.8 04/06/2016 10:40pm 04/06/2016 10:49pm Lymphocytes # (Auto) 2.9 X 10^3 1.0-4.0 04/06/2016 10:40pm 04/06/2016 10:49pm Monocytes # (Auto) 0.7 X 10^3 0.0-1.0 04/06/2016 10:40pm 04/06/2016 10: 49pm Eosinophils # (Auto) 0.1 10^3/uL 0.0-0.3 04/06/2016 10:40pm 04/06/2016 10:49pm Basophils # (Auto) 0.1 10^3/uL 0.0-0.1 04/06/2016 10:40pm 04/06/2016 10 :49pm Urine Color YELLOW 04/06/2016 10:08pm 04/06/2016 10:24pm Urine Clarity SLIGHTLY CLOUDY 04/06/2016 10:08pm 04/06/2016 10: 24pm Urine pH 6 5-9 04/06/2016 10:08pm 04/06/2016 10:24pm Urine Specific [place] 1.020 1.016-1.022 04/06/2016 10:08pm 2016 10:24pm Urine Protein NEGATIVE NEGATIVE 04/06/2016 10:08pm 04/06/2016 10: 24pm Urine Glucose (UA) NEGATIVE NEGATIVE 04/06/2016 10:08pm 04/06/2016 10 :24pm Urine RBC (Auto) NEGATIVE NEGATIVE 04/06/2016 10:08pm 04/06/2016 10: 24pm Urine Ketones 4+ * NEGATIVE 04/06/2016 10:08pm 04/06/2016 10:24pm Urine Nitrite NEGATIVE NEGATIVE 04/06/2016 10:08pm 04/06/2016 10: 24pm Urine Bilirubin NEGATIVE NEGATIVE 04/06/2016 10:08pm 04/06/2016 10: 24pm Urine Urobilinogen NORMAL MG/DL NORMAL 04/06/2016 10:08pm 04/06/2016 10 :24pm Urine Leukocyte Esterase 2+ * NEGATIVE 04/06/2016 10:08pm 04/06/2016 10 :24pm Urine RBC NONE /HPF 04/06/2016 10:08pm 04/06/2016 10:24pm Urine WBC 2-5 /HPF 04/06/2016 10:08pm 04/06/2016 10:24pm Urine Bacteria NONE /HPF 04/06/2016 10:08pm 04/06/2016 10:24pm Urine Squamous Epithelial Cells 5-10 /HPF 04/06/2016 10:08pm 2016 10:24pm Urine Crystals NONE /LPF 04/06/2016 10:08pm 04/06/2016 10:24pm Urine Casts NONE /LPF 04/06/2016 10:08pm 04/06/2016 10:24pm Urine Mucus NEGATIVE /LPF 04/06/2016 10:08pm 04/06/2016 10:24pm Urine Culture Indicated NO 04/06/2016 10:08pm 04/06/2016 10:24pm Sodium Level 136 MMOL/L 135-145 04/06/2016 10:40pm 04/06/2016 11:15pm Potassium Level 3.6 MMOL/L 3.6-5.0 04/06/2016 10:40pm 04/06/2016 11: 15pm Chloride Level 104 MMOL/L 98-107 04/06/2016 10:40pm 04/06/2016 11:15pm Carbon Dioxide Level 19 MMOL/L L 21-32 04/06/2016 10:40pm 04/06/2016 11: 15pm Anion Gap 13 MMOL/L 5-14 04/06/2016 10:40pm 04/06/2016 11:15pm Blood Urea Nitrogen 10 MG/DL 7-18 04/06/2016 10:40pm 04/06/2016 11: 15pm Creatinine 0.73 MG/DL 0.60-1.30 04/06/2016 10:40pm 04/06/2016 11:15pm BUN/Creatinine Ratio 14 04/06/2016 10:40pm 04/06/2016 11:15pm Estimat Glomerular Filtration Rate > 60 04/06/2016 10:40pm 2016 11:15pm GFR INTERPRETIVE DATA UNITS FOR ESTIMATED GFR (eGFR): mL/min/1.73 M2 REFERENCE RANGE FOR ESTIMATED GFR (eGFR) eGFR NORMAL eGFR >60 MODERATELY DECREASED eGFR 30-59 SEVERLY DECREASED eGFR 15-29 KIDNEY FAILURE <15 (OR DIALYSIS) Glucose Level 84 MG/DL 70-105 04/06/2016 10:40pm 04/06/2016 11:15pm Calcium Level 9.4 MG/DL 8.5-10.1 04/06/2016 10:40pm 04/06/2016 11:15pm Total Bilirubin 0.6 MG/DL 0.1-1.0 04/06/2016 10:40pm 04/06/2016 11: 15pm Alkaline Phosphatase 53 U/L 40-136 04/06/2016 10:40pm 04/06/2016 11: 15pm Aspartate Amino Transf (AST/SGOT) 24 U/L 5-34 04/06/2016 10:40pm 2016 11:15pm Alanine Aminotransferase (ALT/SGPT) 25 U/L 0-55 04/06/2016 10:40pm 11:15pm Total Protein 7.3 G/DL 6.4-8.2 04/06/2016 10:40pm 04/06/2016 11:15pm Albumin 4.5 G/DL 3.2-4.5 04/06/2016 10:40pm 04/06/2016 11:15pm Pending Laboratory Results Test Name Collection Date/Time Procedures No known history of procedures. Encounters Encounter Location Arrival/Admit Date Discharge/Depart Date Attending Provider Departed Emergency Room [facility] 04/10/16 9:14am 04/10 1:00pm GARTH ABRAHAM MD Departed Emergency Room [facility] 04/06/16 8:35pm 04/06 11:51pm KUSH CASTRO Recent Diagnosis
[2016-05-11 00:06] LABS: BASOPHILS # (AUTO) 0.1 10^3/uL (0.0-0.1); BASOPHILS % (AUTO) 1 % (0-10); EOSINOPHILS # (AUTO) 0.2 10^3/uL (0.0-0.3); EOSINOPHILS % (AUTO) 2 % (0-10); LYMPHOCYTES # (AUTO) 2.8 X 10^3 (1.0-4.0); LYMPHOCYTES % (AUTO) 25 % (12-44); MEAN CORPUSCULAR HEMOGLOBIN 30 PG (25-34); MEAN CORPUSCULAR HGB CONC 37 G/DL (32-36); MEAN CORPUSCULAR VOLUME 82 FL (80-99); MEAN PLATELET VOLUME 11.3 FL (7.4-10.4); MONOCYTES # (AUTO) 0.8 X 10^3 (0.0-1.0); MONOCYTES % (AUTO) 7 % (0-12); NEUTROPHILS # (AUTO) 7.7 X 10^3 (1.8-7.8); NEUTROPHILS % (AUTO) 66 % (42-75); PLATELET COUNT 274 10^3/uL (130-400); RED BLOOD COUNT 4.81 10^6/uL (4.35-5.85); RED CELL DISTRIBUTION WIDTH 12.5 % (10.0-14.5); WHITE BLOOD COUNT 11.6 10^3/uL (4.3-11.0)
[2016-05-11 01:08] LABS: BILIRUBIN,URINE NEGATIVE (NEGATIVE); KETONES,URINE NEGATIVE (NEGATIVE); LEUKOCYTE ESTERASE ,URINE 1+ (NEGATIVE); NITRITE,URINE NEGATIVE (NEGATIVE); PH,URINE 6 (5-9); PROTEIN,URINE NEGATIVE (NEGATIVE); UROBILINOGEN,URINE NORMAL (NORMAL)
[2016-05-11 01:15] LABS: WBC,URINE RARE /HPF
--- NOTE | 2016-05-11 01:16 | ED GU-Female ---
General Chief Complaint: -Female Stated Complaint: VAG BLEEDING 11 WKS PREG Nursing Triage Note: vaginal bleeding x1hr. 2 pads used. 11 weeks Nursing Sepsis Screen: No Definite Risk Source: patient Exam Limitations: no limitations History of Present Illness Time seen by provider: 23:39 Initial Comments This 21-year-old at approximately 11 weeks gestational age presents to the emergency room with intermittent bleeding and passage of clots. She then developed cramping. Symptoms have been present for less than 24 hours. She does not believe she has passed any tissue. Dr. 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 She denies any other vaginal symptoms such as vaginal discharge. FHT = 172 by Doppler at bedside. Patient reports an ultrasound done in the clinic demonstrated a single intrauterine . Allergies and Home Medications Allergies Coded Allergies: No Known Drug Allergies (Unverified , 07/02/09) Home Medications Cephalexin 500 Mg Tablet #14 500 MG PO BID Prescribed by: GARTH ABRAHAM on 04/10/16 1121 Ondansetron 4 Mg Tab.rapdis #30 4 MG PO Q6H PRN PRN NAUSEA/VOMITING Prescribed by: GARTH ABRAHAM on 04/10/16 1121 Constitutional: no symptoms reported EENTM: no symptoms reported Respiratory: no symptoms reported Cardiovascular: no symptoms reported Gastrointestinal: no symptoms reported Genitourinary: see HPI : Yes Expected Date of Delivery: Nov 30, 2016 Musculoskeletal: no symptoms reported Skin: no symptoms reported Psychiatric/Neurological: No Symptoms Reported Endocrine: No Symptoms Reported Past Tgbegkb-Mefkzv-Gpbydo Hx Patient Social History Alcohol Use: Denies Use Recreational Drug Use: No Smoking Status: Never a Smoker 2nd Hand Smoke Exposure: No Recent Foreign Travel: No Contact w/Someone Who Travel: No Recent Infectious Disease Expo: No Recent Hopitalizations: No Immunizations Up To Date Tetanus Booster (TDap): Unknown PED Vaccines UTD: No Date of Influenza Vaccine: Oct 26, 2011 Seasonal Allergies Seasonal Allergies: No Surgeries HX Surgeries: Yes Surgeries: Abdominal (EGD with treatment of ulcers), Appendectomy Respiratory Hx Respiratory Disorders: No Cardiovascular Hx Cardiac Disorders: No Neurological Hx Neurological Disorders: No Reproductive System : Yes Hx : 2 Hx Para: 1 Hx Reproductive Disorders: No Female Reproductive Disorders: Denies Genitourinary Hx Genitourinary Disorders: No Gastrointestinal Hx Gastrointestinal Disorders: Yes Gastrointestinal Disorders: Gastroesophageal Reflux, Hiatal Hernia, Ulcer Musculoskeletal Hx Musculoskeletal Disorders: No Endocrine Hx Endocrine Disorders: No HEENT HX ENT Disorders: No Cancer Hx Cancer: No Psychosocial Hx Psychiatric Problems: No Integumentary HX Skin/Integumentary Disorder: No Blood Transfusions Hx Blood Disorders: No Adverse Reaction to a Blood Tr: No Family Medical History Significant Family History: No Pertinent Family Hx, Heart Disease, Diabetes Physical Exam Vital Signs Vital Sign - Last 12Hours 05/11/16 00:07 Temp 97.7 Pulse 84 Resp 18 B/P 119/97 Pulse Ox 97 O2 Delivery Room Air Capillary Refill : Less Than 3 Seconds General Appearance: WD/WN no apparent distress HEENT: PERRL/EOMI normal ENT inspection Cardiovascular: regular rate, rhythm no edema no murmur Respiratory: lungs clear normal breath sounds no respiratory distress no accessory muscle use Gastrointestinal: normal bowel sounds soft tenderness (minimal suprapubic) Pelvic: other ( heart tones by Doppler 172) Extremities: normal range of motion no pedal edema 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/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: 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 II-XII nml as tested no motor/sensory deficits alert normal mood/affect oriented x 3 Skin: normal color warm/dry Focused Exam Lactic Acid Level Progress/Results/Core Measures Results/Orders Lab Results Laboratory Tests Test 05/10/16 23:58 05/11/16 01:00 Range/Units Basophils # (Auto) 0.1 0.0-0.1 10^3/uL Basophils (%) (Auto) 1 0-10 % Eosinophils # (Auto) 0.2 0.0-0.3 10^3/uL Eosinophils (%) (Auto) 2 0-10 % Hematocrit 39 35-52 % Hemoglobin 14.4 11.5-16.0 G/DL Human Chorionic Gonadotropin, Quant 50120 H <5 MIU/ML Lymphocytes # (Auto) 2.8 1.0-4.0 X 10^3 Lymphocytes (%) (Auto) 25 12-44 % Mean Corpuscular Hemoglobin 30 25-34 PG Mean Corpuscular Hemoglobin Concent 37 H 32-36 G/DL Mean Corpuscular Volume 82 80-99 FL Mean Platelet Volume 11.3 H 7.4-10.4 FL Monocytes # (Auto) 0.8 0.0-1.0 X 10^3 Monocytes (%) (Auto) 7 0-12 % Neutrophils # (Auto) 7.7 1.8-7.8 X 10^3 Neutrophils (%) (Auto) 66 42-75 % Platelet Count 274 130-400 10^3/uL Red Blood Count 4.81 4.35-5.85 10^6/uL Red Cell Distribution Width 12.5 10.0-14.5 % White Blood Count 11.6 H 4.3-11.0 10^3/uL Urine Bacteria TRACE /HPF Urine Bilirubin NEGATIVE NEGATIVE Urine Casts NONE /LPF Urine Clarity SLIGHTLY CLOUDY Urine Color YELLOW Urine Crystals NONE /LPF Urine Culture Indicated NO Urine Glucose (UA) NEGATIVE NEGATIVE Urine Ketones NEGATIVE NEGATIVE Urine Leukocyte Esterase 1+ H NEGATIVE Urine Mucus NEGATIVE /LPF Urine Nitrite NEGATIVE NEGATIVE Urine Other FEW SPERM H /HPF Urine Protein NEGATIVE NEGATIVE Urine RBC 50-100 H /HPF Urine RBC (Auto) 5+ H NEGATIVE Urine Specific Hamer 1.015 L 1.016-1.022 Urine Squamous Epithelial Cells 5-10 /HPF Urine Urobilinogen NORMAL NORMAL MG/DL Urine WBC RARE /HPF Urine pH 6 5-9 My Orders Orders-HANSEL SANTOS MD Cbc With Automated Diff (05/10/16 23:39) Hcg,Quantitative (05/10/16 23:39) Ua Culture If Indicated (05/10/16 23:39) Rhogam Administration (05/10/16 23:41) Rh Immune Globulin (05/11/16 01:23) Vital Signs/I&O Blood Pressure Mean: 104 Departure Impression Impression: Primary Impression: Threatened miscarriage Additional Impressions: Vaginal bleeding in Qualified Code: O46.91 - Antepartum hemorrhage, unspecified, first trimester Blood type, Rh negative Disposition: 01 HOME, SELF-CARE Condition: Stable/Unchanged Departure-Patient Inst. Decision time for Depature: 01:14 Referrals: [facility] (PCP/Family) Primary Care Physician Patient Instructions: Threatened Miscarriage Add. Discharge Instructions: You may take Tylenol up to 1000 mg every 6 hours as needed for pain. Contact Dr. ROSARIO's office as soon as they opened this morning for further instructions. Return to care if symptoms worsen. All discharge instructions reviewed with patient and/or family. Voiced understanding. Copy Copies To 1: RUBÉN ROSARIO JOSHUA T MD May 11, 2016 01:16 HANSEL SANTOS MD May 11, 2016 01:16
[2016-05-11 01:52] VITALS: BP 104/64
== END 2016-05-11 01:52 | disposition home or self-care (01) ==
LOC: EDUNIT# 23:38 → ER 23:40
DX: O20.0 Threatened abortion (principal); Z3A.01 Less than 8 weeks gestation of pregnancy
CPT/HCPCS: 36415; 81000; 84702; 85025; 96372; 99283

== ENCOUNTER → 2016-07-09 | Outpatient (CLI) | payer MEDICAID ==
--- NOTE | 2016-07-09 19:10 | Diagnostic Imaging Report ---
INDICATION: survey. TECHNIQUE: Multiple real-time grayscale images were obtained over the gravid uterus. COMPARISON: No prior studies are available for comparison during this . FINDINGS: heart rate is 153 beats minute. The cervix is 3.6 cm in length and is closed. position is breech. The placenta is anterior. No placenta previa. There is adequate amniotic fluid seen. The anatomic evaluation demonstrates normal appearance of the stomach, the four-chamber view, the spine, cord insertion, no ventriculomegaly, and the two umbilical arteries around the urinary bladder which appears unremarkable is seen. Based on the provided LMP of 02/24/2016, the current gestational age would be 19 weeks and 3 days, consistent with the average measurements of 19 weeks and 2 days. Biometrical measurements are as follows: Biparietal 4.3 cm, age 19 weeks 0 days. Head circumference 16..3 cm, age 19 weeks 0 days. Abdominal circumference 13.9 cm, age 19 weeks 3 days. Femur length 2.9 cm, age 19 weeks 2 days. Sonographic estimate age: 19 weeks 2 days. Sonographic estimated date of delivery: 12-01-2016. Estimated Weight: 281 gm (+/- 41 gm). LMP percentile: 34%. heart rate: 150 beats per minute. number: 1 of 1. IMPRESSION: Completed survey. Live intrauterine . Dictated by: Dictated on workstation # [id number]
== END ==
LOC: RAD 13:07
PROVIDERS: ATTEND Obstetrics & Gynecology
DX: Z34.82 Encounter for supervision of other normal pregnancy, second trimester (principal); Z36 Encounter for antenatal screening of mother; Z3A.19 19 weeks gestation of pregnancy
CPT/HCPCS: 76805

== ENCOUNTER 2016-10-27 04:36 | Inpatient (IN) | payer MEDICAID ==
[~2016-10-27] VITALS: Ht 160 cm; Wt 65.0 kg
[2016-10-27] VITALS (9 sets, daily range): BP systolic 107–137; BP diastolic 51–86
[2016-10-27 05:15] LABS: BILIRUBIN,URINE NEGATIVE (NEGATIVE); KETONES,URINE NEGATIVE (NEGATIVE); LEUKOCYTE ESTERASE ,URINE 3+ (NEGATIVE); NITRITE,URINE NEGATIVE (NEGATIVE); PH,URINE 7 (5-9); PROTEIN,URINE NEGATIVE (NEGATIVE); UROBILINOGEN,URINE NORMAL (NORMAL)
[2016-10-27] MEDS ORDERED: NS IV 500 ML 500 ML ONE (05:27)
[2016-10-27] MEDS ORDERED: NS (IVPB) 100 ML ONE (05:28)
[2016-10-27] MEDS ORDERED: AMPICILLIN 2000 MG INJECTION (IM/IV) ONE (05:28)
[2016-10-27] MEDS ORDERED: BETAMETHASONE ACE/NA PHOS 6 MG/ML (CELESTONE SOLUSPAN) ONE (05:29)
[2016-10-27] MEDS ORDERED: TERBUTALINE INJ 1 MG/ML (BRETHINE) AMP ONE (05:30)
[2016-10-27] MEDS ORDERED: NS IV 500 ML 500 ML IV SCH ×2 (05:45)
[2016-10-27] MEDS ORDERED: NS IV 1000 ML 1,000 ML ONE (05:48)
[2016-10-27] MEDS ORDERED: TERBUTALINE INJ 1 MG/ML (BRETHINE) AMP SC ONE (05:50)
[2016-10-27] MEDS ORDERED: AMPICILLIN INJECTION 2,000 MG in NS (IVPB) 50 ML IV ONE (05:55)
[2016-10-27] MEDS: BETAMETHASONE ACE/NA PHOS 6 MG/ML (CELESTONE SOLUSPAN) IM SCH ×2 (05:55→18:44)
[2016-10-27 06:25] LABS: BASOPHILS # (AUTO) 0.1 10^3/uL (0.0-0.1); BASOPHILS % (AUTO) 0 % (0-10); EOSINOPHILS # (AUTO) 0.1 10^3/uL (0.0-0.3); EOSINOPHILS % (AUTO) 1 % (0-10); LYMPHOCYTES # (AUTO) 2.5 X 10^3 (1.0-4.0); LYMPHOCYTES % (AUTO) 21 % (12-44); MEAN CORPUSCULAR HEMOGLOBIN 30 PG (25-34); MEAN CORPUSCULAR HGB CONC 36 G/DL (32-36); MEAN CORPUSCULAR VOLUME 85 FL (80-99); MEAN PLATELET VOLUME 12.5 FL (7.4-10.4); MONOCYTES # (AUTO) 0.7 X 10^3 (0.0-1.0); MONOCYTES % (AUTO) 6 % (0-12); NEUTROPHILS # (AUTO) 8.3 X 10^3 (1.8-7.8); NEUTROPHILS % (AUTO) 71 % (42-75); PLATELET COUNT 202 10^3/uL (130-400); RED BLOOD COUNT 4.64 10^6/uL (4.35-5.85); RED CELL DISTRIBUTION WIDTH 12.9 % (10.0-14.5); WHITE BLOOD COUNT 11.6 10^3/uL (4.3-11.0)
[2016-10-27 06:48] LABS: ALANINE AMINOTRANSFERASE 18 U/L (0-55); ALBUMIN 3.5 GM/DL (3.2-4.5); ANION GAP 14 MMOL/L (5-14); ASPARTATE AMINO TRANSFERASE 24 U/L (5-34); BILIRUBIN,TOTAL 0.4 MG/DL (0.1-1.0); BLOOD UREA NITROGEN 10 MG/DL (7-18); BUN/CREATININE RATIO 14; CALCIUM 9.2 MG/DL (8.5-10.1); CARBON DIOXIDE 18 MMOL/L (21-32); CHLORIDE 106 MMOL/L (98-107); GFR ESTIMATED > 60; GLUCOSE 78 MG/DL (70-105); POTASSIUM 3.5 MMOL/L (3.6-5.0); SODIUM 138 MMOL/L (135-145); TOTAL PROTEIN 6.7 GM/DL (6.4-8.2)
[2016-10-27] MEDS: NS IV 1000 ML 1,000 ML IV SCH ×3 (06:55→22:51)
[2016-10-27] MEDS: AMPICILLIN INJECTION 1,000 MG in NS (IVPB) 50 ML IV SCH ×4 (09:40→22:51)
[2016-10-27] MEDS ORDERED: CATHETER FLUSH 10 ML SYR IV SCH (14:00)
[2016-10-27] MEDS: ACETAMINOPHEN 500 MG TAB (TYLENOL) PO PRN (23:28)
[2016-10-28] VITALS (10 sets, daily range): BP systolic 103–125; BP diastolic 59–77
[2016-10-28] MEDS: AMPICILLIN INJECTION 1,000 MG in NS (IVPB) 50 ML IV SCH ×3 (03:43→12:29)
[2016-10-28] MEDS: NS IV 1000 ML 1,000 ML IV SCH (08:05)
[2016-10-28] MEDS: ACETAMINOPHEN 500 MG TAB (TYLENOL) PO PRN (12:38)
--- NOTE | 2016-10-28 13:07 | History & Physical-OB ---
OB - Chief Complaint & HPI Date/Time Date of Admission: Date of Admission: Oct 27, 2016 at 6:01 am Time Seen by Provider: 07:30 Chief Complaint/History OB-Reason for Admission/Chief: Labor Hx : 2 Hx Para: 1 Expected Date of Delivery: Nov 30, 2016 Gestational Age in Weeks: 35 Gestational Age in Days: 1 Admission Nurse Assessment Rev: Yes History of Labs B neg Antibody neg RI RPR NR HBsAg NR HIV NR GC neg GBS unknown Allergies and Home Medications Allergies Coded Allergies: No Known Drug Allergies (Unverified , 07/02/09) Home Medications Cephalexin 500 Mg Tablet, 500 MG PO BID, #14 Prescribed by: GARTH ABRAHAM on 04/10/16 1121 Ondansetron 4 Mg Tab.rapdis, 4 MG PO Q6H PRN for NAUSEA/VOMITING, #30 Ref 0 Prescribed by: GARTH ABRAHAM on 04/10/16 1121 OB - History Hx of Present Care: Yes Ultrasounds: Normal mid trimester US Obstetrical Complications: None Medical Complications: None Obstetrical History Hx Termination: No Hx Multiple Gestation: No Hx Stillbirth: No Hx Complication: No Hx Induced Hypertens: No Hx Maternal Gestational Diabet: No Delivery History Hx Dystocia: No Hx Large For Gestational Age I: No Hx Small for Gestational Age I: No Hx Section: No Hx Vaginal Delivery Post C-Sec: No Hx Blood Disorders: No Adverse Rxn to Tranfusion: No Patient Past Medical History none Social History/Family History Recent Infectious Disease Expo: No Alcohol Use: Denies Use Recreational Drug Use: No 2nd Hand Smoke Exposure: No Immunizations Hepatitis A: Yes Hepatitis B: Yes Tetanus Booster (TDap): Unknown Date of Influenza Vaccine: Oct 26, 2011 OB - Admission Exam Physical Exam Date Seen by Provider: Oct 27, 2016 Time Seen by Provider: 07:30 Vitals: Vital Signs 10/28/16 12:00 Temp 98.3 Pulse 74 Resp 20 B/P (MAP) 103/60 O2 Delivery Room Air HEENT: NCAT Heart: Rhythm Normal Lungs: Clear Abdomen: Gravid Extremities: Normal Reflexes: Normal Cervical Dilatation: 4cm Effacement: 75% Station: -1 Membranes: Intact Heart Rate: 130's Accelerations: Accelerations Present Decelerations: Early Decelerations Short Term Variability: Present Alf Variability: Average (6-25) Contractions on Admission: < 5 Minutes Apart Intensity: Firm OB - Assessment/Plan/Diagnosis Assessment Assessment: labor Plan Other Plan This 21-year-old female was admitted yesterday morning for onset of labor. Initially upon evaluation she was sandy every 1-2 minutes. Initial vaginal exam revealed a cervix dilated 4 cm 80 percent effaced and -1 station. I had the nursing staff start an IV and bolus the patient 500 mL's of normal saline she is also given 0.25 mg of terbutaline subcutaneous which did space out the patient's contractions to the point that she was very comfortable. She is given her first dose of betamethasone yesterday morning, she continued to have intermittent contractions throughout the day but made no cervical change this morning she received her second dose of betamethasone. She reports an increase in discomfort this morning however reevaluation showed no change on cervical examination. There is a episode of bradycardia of a baseline in the 100s, however moderate variability and accelerations are still noted despite the low baseline. I'm having a biophysical profile performed, and discussed the patient going home and being on bed rest due to labor for the remainder of the . labor precautions were reviewed with the patient in detail a GBS was also collected prior to patient discharge today. Discharge Diagnosis Diagnosis: 21 yo @ 35.1 labor GBS unknown RUBÉN ROSARIO DO Oct 28, 2016 1:07 pm
--- NOTE | 2016-10-28 14:14 | Diagnostic Imaging Report ---
INDICATION: labor. COMPARISON: 07/09/16. Biophysical Profile Score: Movement: 2 Breathin Tone: 2 Fluid: 2 Total: 09/29 Heart Rate: 106 BPM Presentation is cephalic. Placenta is anterior. HARESH is 6cm. The single largest vertical pocket is 2.7 cm. IMPRESSION: Normal Biophysical Profile Score. Dictated by: Dictated on workstation # [id number]
[2016-10-28] MEDS ORDERED: PREN1TAB86 PO (14:27)
== END 2016-10-28 14:53 | disposition home or self-care (01) | DRG 778 ==
LOC: WSo 04:36 → LDRP 04:37 → WSo 06:00 → LDRP 06:01
PROVIDERS: ADMIT Obstetrics & Gynecology; ATTEND Obstetrics & Gynecology
DX: O60.03 Preterm labor without delivery, third trimester (principal); Z3A.35 35 weeks gestation of pregnancy
CPT/HCPCS: 36415; 76819; 80053; 81000; 85025; 86850; 86900; 86901

== ENCOUNTER 2016-10-29 15:25 | Inpatient (IN) | payer MEDICAID ==
[2016-10-29] VITALS (24 sets, daily range): BP systolic 99–137; BP diastolic 58–85
[~2016-10-29] VITALS: Ht 160 cm; Wt 77.3 kg
[~2016-10-29 15:25] MED LIST changes: +PREN1TAB86 PO
[2016-10-29] MEDS ORDERED: D5 LR IV SOLUTION 1,000 ML IV ONE (15:39)
[2016-10-29 16:20] LABS: BASOPHILS % (AUTO) 0 % (0-10); EOSINOPHILS % (AUTO) 0 % (0-10); LYMPHOCYTES # (AUTO) 1.5 X 10^3 (1.0-4.0); LYMPHOCYTES % (AUTO) 13 % (12-44); MEAN CORPUSCULAR HEMOGLOBIN 30 PG (25-34); MEAN CORPUSCULAR HGB CONC 35 G/DL (32-36); MEAN CORPUSCULAR VOLUME 86 FL (80-99); MEAN PLATELET VOLUME 12.1 FL (7.4-10.4); MONOCYTES % (AUTO) 9 % (0-12); NEUTROPHILS # (AUTO) 8.8 X 10^3 (1.8-7.8); NEUTROPHILS % (AUTO) 78 % (42-75); PLATELET COUNT 202 10^3/uL (130-400); RED BLOOD COUNT 4.35 10^6/uL (4.35-5.85); RED CELL DISTRIBUTION WIDTH 13.1 % (10.0-14.5); WHITE BLOOD COUNT 11.3 10^3/uL (4.3-11.0)
[2016-10-29] MEDS ORDERED: AMPICILLIN INJECTION 2,000 MG in NS (IVPB) 50 ML IV NR (16:30)
[2016-10-29] MEDS: D5 LR IV SOLUTION 1,000 ML IV SCH (16:34)
[2016-10-29] MEDS ORDERED: OXYTOCIN/NORMAL SALINE 500 ML IV SCH (17:06)
--- NOTE | 2016-10-29 17:06 | History & Physical-OB ---
OB - Chief Complaint & HPI Date/Time Date of Admission: Date of Admission: Oct 29, 2016 at 3:25 pm Time Seen by Provider: 15:00 Chief Complaint/History OB-Reason for Admission/Chief: Labor (SROM) Hx : 2 Hx Para: 1 Expected Date of Delivery: Nov 30, 2016 Gestational Age in Weeks: 35 Gestational Age in Days: 3 Other reason for admission: Patient presented to my office with concern for leakage of fluid. HARESH was found to be less than 4 on bedside biophysical. Otherwise biophysical was 6 out of 8. The patient was recently admitted on Wednesday and Wednesday received betamethasone was monitored for labor. Admission Nurse Assessment Rev: Yes History of Labs B neg Antibody neg RI RPR NR HBsAg NR HIV NR GC neg GBS unknown Allergies and Home Medications Allergies Coded Allergies: No Known Drug Allergies (Unverified , 07/02/09) Home Medications Vit W-Ca,Fe,FA(<1 mg) 1 Each Tablet, 1 EACH PO DAILY, (Reported) OB - History Hx of Present Care: Yes Ultrasounds: Normal mid trimester US Obstetrical Complications: Other ( labor) Medical Complications: None Obstetrical History Hx Termination: No Hx Multiple Gestation: No Hx Stillbirth: No Hx Complication: No Hx Induced Hypertens: No Hx Maternal Gestational Diabet: No Delivery History Hx Dystocia: No Hx Large For Gestational Age I: No Hx Small for Gestational Age I: No Hx Section: No Hx Vaginal Delivery Post C-Sec: No Hx Blood Disorders: No Adverse Rxn to Tranfusion: No Patient Past Medical History none Social History/Family History Recent Infectious Disease Expo: No Alcohol Use: Denies Use Recreational Drug Use: No 2nd Hand Smoke Exposure: No Immunizations Hepatitis A: Yes Hepatitis B: Yes Tetanus Booster (TDap): Unknown Date of Influenza Vaccine: Oct 26, 2011 OB - Admission Exam Physical Exam Date Seen by Provider: Oct 29, 2016 Time Seen by Provider: 15:00 HEENT: NCAT Heart: Rhythm Normal Lungs: Clear Abdomen: Gravid Extremities: Normal Cervical Dilatation: 4cm Effacement: 75% Station: -1 Membranes: Ruptured Amniotic Fluid: Other (slightly bloody and then) Heart Rate: 130's Accelerations: Accelerations Present Decelerations: No Decelerations Short Term Variability: Present Day Ha[employer] 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 Variability: Average (6-25) Contractions on Admission: 6-10 Minutes Apart Intensity: Moderate Labs Laboratory Tests Test 10/29/16 16:00 Range/Units White Blood Count 11.3 H 4.3-11.0 10^3/uL Red Blood Count 4.35 4.35-5.85 10^6/uL Hemoglobin 13.1 11.5-16.0 G/DL Hematocrit 38 35-52 % Mean Corpuscular Volume 86 80-99 FL Mean Corpuscular Hemoglobin 30 25-34 PG Mean Corpuscular Hemoglobin Concent 35 32-36 G/DL Red Cell Distribution Width 13.1 10.0-14.5 % Platelet Count 202 130-400 10^3/uL Mean Platelet Volume 12.1 H 7.4-10.4 FL Neutrophils (%) (Auto) 78 H 42-75 % Lymphocytes (%) (Auto) 13 12-44 % Monocytes (%) (Auto) 9 0-12 % Eosinophils (%) (Auto) 0 0-10 % Basophils (%) (Auto) 0 0-10 % Neutrophils # (Auto) 8.8 H 1.8-7.8 X 10^3 Lymphocytes # (Auto) 1.5 1.0-4.0 X 10^3 Monocytes # (Auto) 1.0 0.0-1.0 X 10^3 Eosinophils # (Auto) 0.0 0.0-0.3 10^3/uL Basophils # (Auto) 0.0 0.0-0.1 10^3/uL OB - Assessment/Plan/Diagnosis Assessment Assessment: rupture of membranes Plan Induction Method: per Pitocin Protocol Discharge Diagnosis Diagnosis: 21-year-old at 35 and 3 weeks' gestation labor Premature spontaneous rupture membranes GBS unknown RUBÉN ROSARIO DO Oct 29, 2016 5:06 pm
[2016-10-29] MEDS ORDERED: SUFENTA 0.6MCG/ML BUPIVA 0.125 100 ML ONE (19:28)
[2016-10-29] MEDS ORDERED: BUPIVACAINE 0.25% 30 ML (SENSORCAINE) VIAL ONE (19:55)
[2016-10-29] MEDS ORDERED: LACTATED RINGERS 1,000 ML IV ONE (20:27)
[2016-10-29] MEDS ORDERED: EPIDURAL (SUFENTA 0.6MCG/ML BUPIVA 0.125%) 100 ML BAG EPI SCH (20:30)
[2016-10-29] MEDS ORDERED: NALOXONE 0.4 MG/ML 1 ML (NARCAN) VIAL IV PRN (20:30)
[2016-10-29] MEDS ORDERED: ONDANSETRON 4 MG/2 ML (SDV) Z0FRAN IV PRN (20:30)
[2016-10-29] MEDS: AMPICILLIN INJECTION 1,000 MG in NS (IVPB) 50 ML IV SCH (21:34)
[2016-10-29] MEDS ORDERED: CATHETER FLUSH 10 ML SYR IV SCH (22:00)
[2016-10-30] VITALS (26 sets, daily range): BP systolic 97–156; BP diastolic 55–85
[2016-10-30] MEDS: D5 LR IV SOLUTION 1,000 ML IV SCH (01:02)
[2016-10-30] MEDS: AMPICILLIN INJECTION 1,000 MG in NS (IVPB) 50 ML IV SCH (01:18)
[2016-10-30] MEDS ORDERED: LIDOCAINE/EPI 2% 1:200,00 (XYLOCAINE) 10 ML VIAL ONE (02:21)
[2016-10-30] MEDS: OXYTOCIN/NORMAL SALINE 500 ML IV SCH ×2 (02:52→03:24)
--- NOTE | 2016-10-30 03:05 | OB Labor & Delivery Record ---
L&D History Date of Service Date of Service: Oct 30, 2016 History Expected Date of Delivery: Nov 30, 2016 Gestational Age in Weeks: 35 Hx : 2 Hx Para: 1 Complications Events: Labor <37 wks, Prematre Rupture Membrane, Routine care Operative Indications (Cesarea: N/A-Vaginal Delivery Intrapartal Events: None L&D Stage1 Stage One Onset of Labor - Date: Oct 30, 2016 Monitors and Tracing Monitor Mode: Doppler Heart Rate: 125 Monitor Accelerations: Uniform Monitor Decelerations: None Station: 0 Penitentiary Variability: Moderate (11-25) Short Term Variability: Present Presentation: Vertex Vital Signs VS - Last 72 Hours, by Label 10/29/16 10/29/16 10/29/16 10/29/16 15:40 17:40 20:00 20:02 Temp 97.4 97.1 98.0 Pulse 59 63 68 Resp 18 18 B/P (MAP) 124/75 107/69 113/73 Pulse Ox 98 O2 Delivery Room Air Room Air 10/29/16 10/29/16 10/29/16 10/29/16 20:05 20:08 20:11 20:15 Pulse 70 65 61 75 B/P (MAP) 117/68 137/85 123/72 116/73 Pulse Ox 98 98 99 99 10/29/16 10/29/16 10/29/16 10/29/16 20:18 20:21 20:25 20:30 Pulse 68 70 81 68 B/P (MAP) 106/59 105/61 104/62 103/61 Pulse Ox 98 98 97 97 10/29/16 10/29/16 10/29/16 10/29/16 20:45 21:00 21:15 21:30 Pulse 66 61 70 63 B/P (MAP) 111/60 118/73 101/61 117/69 Pulse Ox 97 97 98 98 10/29/16 10/29/16 10/29/16 10/29/16 21:45 22:00 22:15 22:30 Pulse 60 68 57 60 B/P (MAP) 106/62 99/58 101/60 119/67 Pulse Ox 98 98 97 98 10/29/16 10/29/16 10/29/16 10/29/16 22:45 23:00 23:15 23:30 Pulse 61 60 61 69 B/P (MAP) 111/68 116/79 106/66 133/85 Pulse Ox 97 97 97 97 10/29/16 10/30/16 10/30/16 10/30/16 23:45 00:00 00:15 00:30 Temp 97.8 Pulse 62 71 61 69 B/P (MAP) 109/67 114/74 113/71 118/66 Pulse Ox 97 98 97 97 10/30/16 10/30/16 10/30/16 10/30/16 00:45 01:00 01:15 01:30 Temp 97.0 Pulse 71 65 70 68 B/P (MAP) 118/70 117/68 117/68 117/69 Pulse Ox 98 98 98 97 10/30/16 01:45 Pulse 68 B/P (MAP) 105/61 Pulse Ox 98 Rupture of Membranes Spontaneous Ruture of Membrane: Yes Amniotic Membrane Rupture Time: 08:00 Amniotic Membrane Fluid Desc.: Clear Vaginal Bleeding Description: Normal Show Induction/Anesthesia Epidural Cath Placement - Time: 2010 Progress/Notes Patient's labor was augmented with Pitocin, she received an epidural at approximately 4 cm and progressed to complete and +2 station when I was called for delivery. L&D Stage2 Stage Two Stage II Date: Oct 30, 2016 Monitors and Tracing Monitor Mode: External Heart Rate: 125 Monitor Accelerations: Uniform Monitor Decelerations: Variable Penitentiary Variability: Average (6-10) Short Term Variability: Present Position: Right Occiput Anterior Presentation: Vertex Cord Descript/Complications Cord Vessel Description: 3 Vessels Complications Nuchal cord 1 Delivery Type Delivery Method: Spontaneous Vaginal Anterior Shoulder: Left Episiotomy/Perineal Laceration Laceraction(s)/Extensions: Yes Degree (describe repair) A periurethral laceration occurred, it was repaired using 3-0 repeade Vicryl Condition of Delivery 1 minute Comment: 8 5 minute Comment: 9 Notes Live male infant weighing 5 pounds even Condition of Condition of : Living Exam: No Observed Abnormalities Resuscitation Resuscitation: N/A - Spontaneous Resp L&D Stage3 Stage Three Stage III Date: Oct 30, 2016 Pictocin Pitocin Administration mu/min: 10 Pitocin ml/hr: 10 Pitocin Administration Comment: 30 milliunits wide open and delivery of placenta Placenta Delivery Placenta Delivery: Spontaneous Delivery Summary Summary blood loss >1000ml: No Vaginal blood loss >500ml: No 200 Attending at delivery: Rubén Rosario DO Condition of Delivery Examined: Cervix Examined, Uterus Explored Post Hemorrhage: No Condition of Mother stable Condition of (s) stable RUBÉN ROSARIO DO Oct 30, 2016 3:05 am
[2016-10-30] MEDS ORDERED: MEASLES,MUMPS,RUBELLA 1 EA INJ SQ ONE (03:15)
[2016-10-30] MEDS ORDERED: BENZOCAINE/MENTHOL (DERMOPLAST) 56 ML CAN TP PRN (03:15)
[2016-10-30] MEDS ORDERED: DIBUCAINE (NUPERCAINAL) 1% OINT 30 GM TOP PRN (03:15)
[2016-10-30] MEDS ORDERED: TETANUS,DIPTH,PERTUSS P/F (BOOSTRIX) 0.5 ML VIAL IM ONE (03:15)
[2016-10-30] MEDS ORDERED: WITCH HAZEL(TUCKS) 40 EA JAR TOP PRN (03:15)
[2016-10-30] MEDS: IBUPROFEN 600 MG (MOTRIN) TAB PO SCH ×3 (03:24→18:16)
[2016-10-30] MEDS ORDERED: CATHETER FLUSH 10 ML SYR IV SCH (06:00)
[2016-10-30] MEDS ORDERED: BENZ56AE2 TP (08:59)
[2016-10-30] MEDS ORDERED: IBUP-1773 PO (08:59)
[2016-10-30] MEDS ORDERED: ACET1TAB43 PO (08:59)
[2016-10-30] MEDS ORDERED: FERR-74 PO (08:59)
[2016-10-30] MEDS ORDERED: DOCU100C37 PO (08:59)
--- NOTE | 2016-10-30 09:00 | Discharge Inst-Women's Service ---
Discharge Inst-Women's Serv Depart Medication/Instructions New, Converted or Re-Newed RX: RX on Chart Consults/Follow Up Additional Follow Up: Yes Orders/Referrals Dr. Rosario in 6 weeks Activity Activity: Activity as Tolerated Driving Instructions: No Driving for 1 Week NO SMOKING: NO SMOKING Nothing Inside Vagina: No Douching, No [place], No Tampons Diet Discharge Diet: No Restrictions Symptoms to Report to : Bleeding Excessive, Pain Increased, Fever Over 101 Degrees F, Vaginal Bleeding Increase, Questions/Concerns For Any Problems or Questions: Contact Your Physician Skin/Wound Care Bathing Instructions: Shower (x 2 weeks) RUBÉN ROSARIO DO Oct 30, 2016 9:00 am
--- NOTE | 2016-10-30 10:29 | Anesthesia-Regional Post-Op ---
Regional Patient Condition Mental Status: Alert, Oriented x3 Circulation: Same as Pre-Op Headache: Absent Sensation: Decreased (reports some continued residual left leg numbness. Instructed patient to follow up with us if it hasn't resolved by discharge. ) Motor Block: Absent Post Op Complications Complications None Follow Up Care/Instructions Patient Instructions None needed. Anesthesia/Patient Condition Patient is doing well, no complaints, stable vital signs, no apparent adverse anesthesia problems. No complications reported per nursing. ELOY HIDALGO CRNA Oct 30, 2016 10:29
[2016-10-30] MEDS: DOCUSATE SODIUM 100 MG (COLACE) CAP PO SCH (22:26)
[2016-10-31 00:30] VITALS: BP 104/65
[2016-10-31] MEDS: IBUPROFEN 600 MG (MOTRIN) TAB PO SCH ×4 (00:33→18:18)
[2016-10-31 06:25] VITALS: BP 109/70
[2016-10-31 08:00] VITALS: BP 119/83
[2016-10-31 08:15] LABS: BASOPHILS % (AUTO) 0 % (0-10); EOSINOPHILS # (AUTO) 0.2 10^3/uL (0.0-0.3); EOSINOPHILS % (AUTO) 2 % (0-10); LYMPHOCYTES # (AUTO) 2.5 X 10^3 (1.0-4.0); LYMPHOCYTES % (AUTO) 24 % (12-44); MEAN CORPUSCULAR HEMOGLOBIN 30 PG (25-34); MEAN CORPUSCULAR HGB CONC 35 G/DL (32-36); MEAN CORPUSCULAR VOLUME 86 FL (80-99); MONOCYTES # (AUTO) 0.7 X 10^3 (0.0-1.0); MONOCYTES % (AUTO) 7 % (0-12); NEUTROPHILS # (AUTO) 7.2 X 10^3 (1.8-7.8); NEUTROPHILS % (AUTO) 68 % (42-75); PLATELET COUNT 184 10^3/uL (130-400); RED BLOOD COUNT 4.35 10^6/uL (4.35-5.85); RED CELL DISTRIBUTION WIDTH 12.9 % (10.0-14.5); WHITE BLOOD COUNT 10.6 10^3/uL (4.3-11.0)
[2016-10-31] MEDS: FERROUS SULF 325 MG (IRON) TAB PO SCH (10:00)
[2016-10-31] MEDS: DOCUSATE SODIUM 100 MG (COLACE) CAP PO SCH ×2 (10:00→20:43)
[2016-10-31] MEDS: PRENATAL VITAMIN 1 EA TAB PO SCH (10:00)
--- NOTE | 2016-10-31 10:48 | Postpartum Progress Note ---
Note Note Day # 1 s/p she is doing well. Baby will not be discharged so will stay until tomorrow. Subjective: Patient is without complaints. Ambulating, voiding. Tolerating a regular diet without nausea or vomiting. Normal lochia. Pain is well controlled with oral pain medications. Objective: Laboratory Tests Test 10/31/16 08:01 Range/Units White Blood Count 10.6 4.3-11.0 10^3/uL Red Blood Count 4.35 4.35-5.85 10^6/uL Hemoglobin 13.0 11.5-16.0 G/DL Hematocrit 38 35-52 % Mean Corpuscular Volume 86 80-99 FL Mean Corpuscular Hemoglobin 30 25-34 PG Mean Corpuscular Hemoglobin Concent 35 32-36 G/DL Red Cell Distribution Width 12.9 10.0-14.5 % Platelet Count 184 130-400 10^3/uL Mean Platelet Volume 12.0 H 7.4-10.4 FL Neutrophils (%) (Auto) 68 42-75 % Lymphocytes (%) (Auto) 24 12-44 % Monocytes (%) (Auto) 7 0-12 % Eosinophils (%) (Auto) 2 0-10 % Basophils (%) (Auto) 0 0-10 % Neutrophils # (Auto) 7.2 1.8-7.8 X 10^3 Lymphocytes # (Auto) 2.5 1.0-4.0 X 10^3 Monocytes # (Auto) 0.7 0.0-1.0 X 10^3 Eosinophils # (Auto) 0.2 0.0-0.3 10^3/uL Basophils # (Auto) 0.0 0.0-0.1 10^3/uL Vital Sign - Last 12Hours 10/31/16 10/31/16 00:30 06:25 Temp 97.8 97.0 Pulse 72 59 Resp 18 18 B/P (MAP) 104/65 109/70 O2 Delivery Room Air Room Air Physical Exam: General - Alert and oriented, no apparent distress Abdomen - Soft, appropriately tender to palpation, non-distended, fundus firm at umbilicus Extremities - no edema, negative Jody's bilaterally Assessment: 1. post- day # 1, status post spontaneous vaginal delivery. Recovering well, hemodynamically stable Plan: Routine care. Encourage breast feeding. Encourage ambulation. Ferrous sulfate supplementation. Plan for discharge tomorrow Vitals - Labs Vital Signs - I&O Vital Signs Date Time Temp Pulse Resp B/P (MAP) Pulse Ox O2 Delivery O2 Flow Rate FiO2 10/31/16 06:25 97.0 59 18 109/70 Room Air 10/31/16 00:30 97.8 72 18 104/65 Room Air 10/30/16 21:20 97.8 62 18 116/73 98 Room Air 10/30/16 16:58 98.1 57 18 114/76 10/30/16 12:00 98.9 72 16 103/69 97 Room Air Labs Laboratory Tests 10/31/16 08:01: White Blood Count 10.6, Red Blood Count 4.35, Hemoglobin 13.0, Hematocrit 38, Mean Corpuscular Volume 86, Mean Corpuscular Hemoglobin 30, Mean Corpuscular Hemoglobin Concent 35, Red Cell Distribution Width 12.9, Platelet Count 184, Mean Platelet Volume 12.0H, Neutrophils (%) (Auto) 68, Lymphocytes (%) (Auto) 24 , Monocytes (%) (Auto) 7, Eosinophils (%) (Auto) 2, Basophils (%) (Auto) 0, Neutrophils # (Auto) 7.2, Lymphocytes # (Auto) 2.5, Monocytes # (Auto) 0.7, Eosinophils # (Auto) 0.2, Basophils # (Auto) 0.0 KONSTANTIN RANDLE DO Oct 31, 2016 10:48
[2016-10-31 15:48] VITALS: BP 121/79
[2016-10-31] MEDS: APAP 300 MG/CODEINE 30 MG (TYLENOL #3) TAB PO PRN (20:43)
[2016-10-31 22:02] VITALS: BP 104/67
[2016-11-01 03:27] VITALS: BP 108/72
[2016-11-01] MEDS: IBUPROFEN 600 MG (MOTRIN) TAB PO SCH (06:37)
[2016-11-01 08:00] VITALS: BP 115/80
[2016-11-01] MEDS: DOCUSATE SODIUM 100 MG (COLACE) CAP PO SCH (08:03)
[2016-11-01] MEDS: FERROUS SULF 325 MG (IRON) TAB PO SCH (08:04)
[2016-11-01] MEDS: APAP 300 MG/CODEINE 30 MG (TYLENOL #3) TAB PO PRN (08:04)
[2016-11-01] MEDS: PRENATAL VITAMIN 1 EA TAB PO SCH (08:04)
--- NOTE | 2016-11-01 11:32 | Postpartum Progress Note ---
Note Note Day # 2 s/p , delivery Subjective: Patient is without complaints. Ambulating, voiding. Tolerating a regular diet without nausea or vomiting. Normal lochia. Pain is well controlled with oral pain medications. Objective: Vital Sign - Last 12Hours 11/01/16 03:27 Temp 98.0 Pulse 93 Resp 18 B/P (MAP) 108/72 Pulse Ox 96 O2 Delivery Room Air Physical Exam: General - Alert and oriented, no apparent distress Abdomen - Soft, appropriately tender to palpation, non-distended, fundus firm at umbilicus Extremities - no edema, negative Jody's bilaterally Assessment: 1. post- day # 2, status post vaginal delivery. Recovering well, hemodynamically stable Plan: Routine care. Encourage breast feeding. Encourage ambulation. Plan for discharge today to parent room Vitals - Labs Vital Signs - I&O Vital Signs Date Time Temp Pulse Resp B/P (MAP) Pulse Ox O2 Delivery O2 Flow Rate FiO2 11/01/16 03:27 98.0 93 18 108/72 96 Room Air 10/31/16 22:02 98.8 82 18 104/67 97 Room Air 10/31/16 15:48 98.2 70 18 121/79 99 Room Air KONSTANTIN RANDLE DO Nov 01, 2016 11:32
[2016-11-01 12:00] VITALS: BP 105/69
--- NOTE | 2016-11-05 16:57 | Physician Query-Final Dx ---
MARIE PEÑA 11/05/16 1657: Final Diagnosis Give Final Diagnosis Please give Final Diagnosis RUBÉN ROSARIO DO 11/09/16 0910: Final Diagnosis Give Final Diagnosis 35 week IUP labor normal vaginal delivery MARIE PEÑA Nov 05, 2016 16:57 RUBÉN ROSARIO DO Nov 09, 2016 09:10
== END 2016-11-01 14:40 | disposition home or self-care (01) | DRG 775 ==
LOC: UNDOADMIN 15:25 → LDRP 15:25 → UNDOADMIN 10-30 15:25 → LDRP 10-30 15:25 → UNDODISIN 11-01 14:40
PROVIDERS: ADMIT Obstetrics & Gynecology; ATTEND Obstetrics & Gynecology
PROC: 10E0XZZ Delivery of Products of Conception, External Approach (ICD-10-PCS; principal; 2016-10-30)
PROC: 0UQMXZZ Repair Vulva, External Approach (ICD-10-PCS; 2016-10-30)
DX: O60.14X0 Preterm labor third trimester with preterm delivery third trimester, not applicable or unspecified (principal); O42.013 Preterm premature rupture of membranes, onset of labor within 24 hours of rupture, third trimester; O71.82 Other specified trauma to perineum and vulva; Z37.0 Single live birth; Z3A.35 35 weeks gestation of pregnancy
CPT/HCPCS: 36415; 83033; 85025; 86850; 86900; 86901; 88307

== ENCOUNTER 2018-11-14 20:00 | Emergency (ER) | payer MEDICAID ==
[~2018-11-14] VITALS: Ht 157.4 cm; Wt 61.8 kg
[~2018-11-14 20:00] MED LIST changes: +ACET1TAB43 PO; +BENZ56AE2 TP; +DOCU100C37 PO; +FERR325T18 PO; +IBUP-1773 PO
[2018-11-14] MEDS ORDERED: LACTATED RINGERS 1,000 ML IV ONE ×2 (20:16→20:37)
[2018-11-14 20:23] LABS: BASOPHILS # (AUTO) 0.1 10^3/uL (0.0-0.1); BASOPHILS % (AUTO) 0 % (0-10); EOSINOPHILS % (AUTO) 0 % (0-10); HEMATOCRIT 43 % (35-52); HEMOGLOBIN 15.1 G/DL (11.5-16.0); LYMPHOCYTES # (AUTO) 1.2 X 10^3 (1.0-4.0); LYMPHOCYTES % (AUTO) 7 % (12-44); MEAN CORPUSCULAR HEMOGLOBIN 29 PG (25-34); MEAN CORPUSCULAR HGB CONC 35 G/DL (32-36); MEAN CORPUSCULAR VOLUME 84 FL (80-99); MEAN PLATELET VOLUME 11.3 FL (7.4-10.4); MONOCYTES # (AUTO) 1.3 X 10^3 (0.0-1.0); MONOCYTES % (AUTO) 8 % (0-12); NEUTROPHILS # (AUTO) 14.1 X 10^3 (1.8-7.8); NEUTROPHILS % (AUTO) 84 % (42-75); PLATELET COUNT 280 10^3/uL (130-400); RED CELL DISTRIBUTION WIDTH 12.5 % (10.0-14.5); WHITE BLOOD COUNT 16.8 10^3/uL (4.3-11.0)
[2018-11-14] MEDS ORDERED: IBUPROFEN 800 MG (MOTRIN) TAB PO ONE (20:30)
[2018-11-14] MEDS ORDERED: ACETAMINOPHEN 500 MG TAB (TYLENOL) PO ONE (20:30)
[2018-11-14 20:50] LABS: ALANINE AMINOTRANSFERASE 51 U/L (0-55); ALBUMIN 4.5 GM/DL (3.2-4.5); ALKALINE PHOSPHATASE 87 U/L (40-136); BILIRUBIN,TOTAL 0.7 MG/DL (0.1-1.0); BUN/CREATININE RATIO 11; CALCIUM 9.8 MG/DL (8.5-10.1); CARBON DIOXIDE 24 MMOL/L (21-32); CHLORIDE 103 MMOL/L (98-107); CREATININE SERUM 0.81 MG/DL (0.60-1.30); GFR ESTIMATED > 60; GLUCOSE 114 MG/DL (70-105); POTASSIUM 3.8 MMOL/L (3.6-5.0); SODIUM 138 MMOL/L (135-145); TOTAL PROTEIN 7.9 GM/DL (6.4-8.2)
--- NOTE | 2018-11-14 20:55 | NUR ---
PT TO CT DEPT VIA W/C
--- NOTE | 2018-11-14 21:11 | Diagnostic Imaging Report ---
INDICATION: Chest pain pressure COMPARISON: None. FINDINGS: Frontal and lateral views the chest demonstrate clear lungs bilaterally. The heart size is normal. There is no pneumothorax. Osseous structures are normal. IMPRESSION: No acute findings. Normal chest. Dictated by: Dictated on workstation # [id number]
[2018-11-14 21:15] LABS: BAND NEUTROPHILS 3 %; LYMPHOCYTES % (MANUAL) 8 %; MONOCYTES % (MANUAL) 6 %; NEUTROPHILS % (MANUAL) 83 %; RBC MORPH NORMAL
[2018-11-14 21:20] LABS: BILIRUBIN,URINE NEGATIVE (NEGATIVE); CLARITY,URINE CLEAR; COLOR,URINE YELLOW; GLUCOSE, URINE (UA) NEGATIVE (NEGATIVE); KETONES,URINE NEGATIVE (NEGATIVE); LEUKOCYTE ESTERASE ,URINE 1+ (NEGATIVE); NITRITE,URINE NEGATIVE (NEGATIVE); PH,URINE 7 (5-9); PROTEIN,URINE NEGATIVE (NEGATIVE); UROBILINOGEN,URINE NORMAL (NORMAL)
[2018-11-14 21:40] LABS: AMPHETAMINE SCREEN, URINE NEGATIVE (NEGATIVE); BARBITURATE SCREEN URINE NEGATIVE (NEGATIVE); BENZODIAZEPINES SCREEN URINE NEGATIVE (NEGATIVE); CANNABINOID SCREEN, URINE NEGATIVE (NEGATIVE); COCAINE SCREEN URINE NEGATIVE (NEGATIVE); METHADONE STAT NEGATIVE (NEGATIVE); METHAMPHETAMINE SCREEN URINE S NEGATIVE (NEGATIVE); OPIATE SCREEN URINE NEGATIVE (NEGATIVE); OXYCODONE STAT NEGATIVE (NEGATIVE); PROPOXYPHENE STAT NEGATIVE (NEGATIVE); TRICYCLIC ANTIDEPRESSANTS SCRE NEGATIVE (NEGATIVE)
[2018-11-14 21:42] LABS: BACTERIA,URINE TRACE /HPF
--- NOTE | 2018-11-14 21:48 | NUR ---
pt's temp assessed to be 37.8. hr is now 98
--- NOTE | 2018-11-14 21:51 | ED Cough/URI ---
General Chief Complaint: Fever-Adult/Adol Stated Complaint: CP,SOB,THROAT SWELLING Nursing Triage Note: PT AMB TO [facility] 6 WITH COMPLAINT OF CP, SORE THROAT, EAR PAIN, AND HEADACHE. STATES HEAD, EARS AND SORE THROAT STARTED OVER A WEEK AGO. STATES THE CP STARTED LAST NIGHT AND IS A PRESSURE. STATES SHE WENT TO [facility] TODAY AND HR WAS IN 150s. STATES THEY DID AN EKG AND SENT HER HOME. DID PRESCRIBED AMOXICILLIN Sepsis Screen: No Definite Risk Allergies and Home Medications Allergies Coded Allergies: No Known Drug Allergies (Unverified , 07/02/09) Home Medications Acetaminophen with Codeine 1 Each Tablet, 1-2 TAB PO Q4H PRN for PAIN-MODERATE Prescribed by: RUBÉN ROSARIO on 10/30/16 0859 Benzocaine/Menthol 56 Gm Aerosol, 56 ML TP UD PRN for PAIN- SEE INSTRUCTIONS Prescribed by: RUBÉN ROSARIO on 10/30/16 0859 Docusate Sodium 100 Mg Capsule, 100 MG PO BID PRN for CONSTIPATION-1ST LINE Prescribed by: RUBÉN ROSARIO on 10/30/16 0859 Ferrous Sulfate 325 Mg Tablet, 325 MG PO DAILY Prescribed by: RUBÉN ROSARIO on 10/30/16 0859 Ibuprofen 600 Mg Tablet, 600 MG PO Q6H Prescribed by: RUBÉN ROSARIO on 10/30/16 0859 Vit W-Ca,Fe,FA(<1 mg) 1 Each Tablet, 1 EACH PO DAILY, (Reported) Past Zvjxiyp-Vflyxa-Siqvip Hx Patient Social History Alcohol Use: Denies Use Recreational Drug Use: No Smoking Status: Never a Smoker 2nd Hand Smoke Exposure: No Recent Foreign Travel: No Contact w/Someone Who Travel: No Recent Infectious Disease Expo: No Recent Hopitalizations: No Physical Abuse: No Sexual Abuse: No Mistreated: No Fear: No Immunizations Up To Date Tetanus Booster (TDap): Unknown PED Vaccines UTD: Yes Date of Influenza Vaccine: Oct 26, 2011 Seasonal Allergies Seasonal Allergies: No Past Medical History Surgeries: No Abdominal, Appendectomy Respiratory: No Cardiac: No Neurological: No Reproductive Disorders: No Female Reproductive Disorders: Denies 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 8.0oz. [id number]; 24.00 BMI Method:Stated Progress/Results/Core Measures Suspected Sepsis Recent Fever Within 48 Hours: No Infection Criteria Present: None New/Unexplained Altered Menta: No Sepsis Screen: No Definite Risk SIRS Temperature: Pulse: 150 Respiratory Rate: 23 Laboratory Tests 11/14/18 20:10: White Blood Count 16.8H Blood Pressure 137 /96 Mean: 110 Laboratory Tests 11/14/18 20:10: Creatinine 0.81, Platelet Count 280, Total Bilirubin 0.7 Results/Orders Lab Results Laboratory Tests Test 11/14/18 20:10 11/14/18 21:09 Range/Units White Blood Count 16.8 H 4.3-11.0 10^3/uL Red Blood Count 5.13 4.35-5.85 10^6/uL Hemoglobin 15.1 11.5-16.0 G/DL Hematocrit 43 35-52 % Mean Corpuscular Volume 84 80-99 FL Mean Corpuscular Hemoglobin 29 25-34 PG Mean Corpuscular Hemoglobin Concent 35 32-36 G/DL Red Cell Distribution Width 12.5 10.0-14.5 % Platelet Count 280 130-400 10^3/uL Mean Platelet Volume 11.3 H 7.4-10.4 FL Neutrophils (%) (Auto) 84 H 42-75 % Lymphocytes (%) (Auto) 7 L 12-44 % Monocytes (%) (Auto) 8 0-12 % Eosinophils (%) (Auto) 0 0-10 % Basophils (%) (Auto) 0 0-10 % Neutrophils # (Auto) 14.1 H 1.8-7.8 X 10^3 Lymphocytes # (Auto) 1.2 1.0-4.0 X 10^3 Monocytes # (Auto) 1.3 H 0.0-1.0 X 10^3 Eosinophils # (Auto) 0.0 0.0-0.3 10^3/uL Basophils # (Auto) 0.1 0.0-0.1 10^3/uL Neutrophils % (Manual) 83 % Lymphocytes % (Manual) 8 % Monocytes % (Manual) 6 % Band Neutrophils 3 % Blood Morphology Comment NORMAL Sodium Level 138 135-145 MMOL/L Potassium Level 3.8 3.6-5.0 MMOL/L Chloride Level 103 98-107 MMOL/L Carbon Dioxide Level 24 21-32 MMOL/L Anion Gap 11 5-14 MMOL/L Blood Urea Nitrogen 9 7-18 MG/DL Creatinine 0.81 0.60-1.30 MG/DL Estimat Glomerular Filtration Rate > 60 BUN/Creatinine Ratio 11 Glucose Level 114 H 70-105 MG/DL Calcium Level 9.8 8.5-10.1 MG/DL Corrected Calcium 9.4 8.5-10.1 MG/DL Total Bilirubin 0.7 0.1-1.0 MG/DL Aspartate Amino Transf (AST/SGOT) 35 H 5-34 U/L Alanine Aminotransferase (ALT/SGPT) 51 0-55 U/L Alkaline Phosphatase 87 40-136 U/L Total Protein 7.9 6.4-8.2 GM/DL Albumin 4.5 3.2-4.5 GM/DL Serum Test, Qualitative NEGATIVE NEGATIVE Monoscreen NEGATIVE NEGATIVE Group A Streptococcus Screen NEGATIVE NEGATIVE Urine Color YELLOW Urine Clarity CLEAR Urine pH 7 5-9 Urine Specific [place] 1.005 L 1.016-1.022 Urine Protein NEGATIVE NEGATIVE Urine Glucose (UA) NEGATIVE NEGATIVE Urine Ketones NEGATIVE NEGATIVE Urine Nitrite NEGATIVE NEGATIVE Urine Bilirubin NEGATIVE NEGATIVE Urine Urobilinogen NORMAL NORMAL MG/DL Urine Leukocyte Esterase 1+ H NEGATIVE Urine RBC (Auto) NEGATIVE NEGATIVE Urine RBC NONE /HPF Urine WBC 2-5 /HPF Urine Squamous Epithelial Cells 5-10 /HPF Urine Crystals NONE /LPF Urine Bacteria TRACE /HPF Urine Casts NONE /LPF Urine Mucus NEGATIVE /LPF Urine Culture Indicated NO Urine Opiates Screen NEGATIVE NEGATIVE Urine Oxycodone Screen NEGATIVE NEGATIVE Urine Methadone Screen NEGATIVE NEGATIVE Urine Propoxyphene Screen NEGATIVE NEGATIVE Urine Barbiturates Screen NEGATIVE NEGATIVE Ur Tricyclic Antidepressants Screen NEGATIVE NEGATIVE Urine Phencyclidine Screen NEGATIVE NEGATIVE Urine Amphetamines Screen NEGATIVE NEGATIVE Urine Methamphetamines Screen NEGATIVE NEGATIVE Urine Benzodiazepines Screen NEGATIVE NEGATIVE Urine Cocaine Screen NEGATIVE NEGATIVE Urine Cannabinoids Screen NEGATIVE NEGATIVE Micro Results Microbiology 11/14/18 Influenza Types A,B Antigen (MYA) - Final, Complete My Orders Orders - SIMBA RODRIGUEZ DO Urine Bedside (11/14/18 20:03) Ekg Tracing (11/14/18 20:03) Monitor-Rhythm Ecg Trace Only (11/14/18 20:03) Drug Screen Stat (Urine) (11/14/18 20:03) Rapid Strep A Screen (11/14/18 20:03) Ua Culture If Indicated (11/14/18 20:03) Chest Pa/Lat (2 View) (11/14/18 20:16) Cbc With Automated Diff (11/14/18 20:16) Comprehensive Metabolic Panel (11/14/18 20:16) Monotest (11/14/18 20:16) Blood Culture (11/14/18 20:16) Influenza A And B Antigens (11/14/18 20:16) Ed Iv/Invasive Line Start (11/14/18 20:16) Lactated Ringers (Lr 1000 Ml Iv Solution (11/14/18 20:16) Acetaminophen Tablet (Tylenol Tablet) (11/14/18 20:30) Ibuprofen Tablet (Motrin Tablet) (11/14/18 20:30) Manual Differential (11/14/18 20:10) Hcg,Qualitative Serum (11/14/18 20:28) Ed Iv/Invasive Line Start (11/14/18 20:37) Lactated Ringers (Lr 1000 Ml Iv Solution (11/14/18 20:37) Medications Given in ED Current Medications Medications Dose Ordered Sig/Kelsey Route Start Time Stop Time Status Last Admin Dose Admin Acetaminophen 1,000 mg ONCE ONCE PO 11/14/18 20:30 11/14/18 20:31 DC 11/14/18 20:27 1,000 MG Ibuprofen 800 mg ONCE ONCE PO 11/14/18 20:30 11/14/18 20:31 DC 11/14/18 20:27 800 MG Lactated Ringer's 1,000 ml @ 0 mls/hr Q0M ONCE IV 11/14/18 20:16 11/14/18 20:19 DC 11/14/18 20:27 1,000 MLS/HR Lactated Ringer's 1,000 ml @ 0 mls/hr Q0M ONCE IV 11/14/18 20:37 11/14/18 20:38 DC 11/14/18 21:06 1,000 MLS/HR Vital Signs/I&O 11/14/18 20:03 Temp 38.4 Pulse 150 Resp 23 B/P (MAP) 137/96 (110) Pulse Ox 99 O2 Delivery Room Air Capillary Refill : Less Than 3 Seconds Blood Pressure Mean: 110 Progress Note : Progress Note HEART RATE AND TEMP DOWN WITH MEDICATIONS AND FLUIDS FEELS BETTER AT DISMISSAL Diagnostic Imaging Comments CXR--NO ACUTE PROCESS, PER RADIOLOGIST REPORT AT 2145 Reviewed: Reviewed by Me Departure Impression Primary Impression: Sinusitis Additional Impressions: Acute pharyngitis Left otitis media Disposition: HOME, SELF-CARE Condition: Improved (ERASED) Departure-Patient Inst. Referrals: [facility] (PCP/Family) Primary Care Physician Patient Instructions: Ear Infections (Otitis Media) (DC), Sore Throat, Adult (DC), Sinusitis, Adult (DC) Add. Discharge Instructions: CONTINUE AMOXIL PRESCRIBED INCREASE YOUR CLEAR LIQUIDS--WATER, BROTH, JELLO, GATORADE TYLENOL 1 GRAM / MOTRIN 800 MG 4 TIMES A DAY NEEDED FOR PAIN OR FEVER FOLLOW UP WITH [facility] IN 3-4 DAYS IF NO BETTER, RETURN TO ER IF WORSE All discharge instructions reviewed with patient and/or family. Voiced understanding. Scripts Methylprednisolone (Medrol) 4 Mg Tab.ds.pk 4 MG PO UD, #1 PKG Prov: SIMBA RODRIGUEZ DO 11/14/18 Fluticasone Propionate (Flonase Allergy Relief) 9.9 Ml [place].susp 2 SPRAYS NS BID, #1 SPRAY Prov: SIMBA RODRIGUEZ DO 11/14/18 Loratadine/Pseudoephedrine (Claritin-D 12 Hour Tablet) 1 Each Tab.er.12h 1 EACH PO BID for Congestion, #30 TAB Prov: SIMBA RODRIGUEZ DO 11/14/18 SIMBA RODRIGUEZ DO Nov 14, 2018 21:51
[2018-11-14] MEDS ORDERED: FLUT9.9S NS (21:54)
[2018-11-14] MEDS ORDERED: LORA1TAB59 PO (21:54)
[2018-11-14] MEDS ORDERED: METH4TAB PO (21:54)
[2018-11-14 21:57] VITALS: BP 105/68
== END 2018-11-14 22:04 | disposition home or self-care (01) ==
LOC: EDUNIT# 20:00 → ER 20:01
DX: J32.9 Chronic sinusitis, unspecified (principal); J02.9 Acute pharyngitis, unspecified; H66.92 Otitis media, unspecified, left ear; Z90.49 Acquired absence of other specified parts of digestive tract; Z82.49 Family history of ischemic heart disease and other diseases of the circulatory system
CPT/HCPCS: 36415; 71046; 80053; 80306; 81000; 84703; 85007; 85027; 86308; 87040; 87430; 87804; 93005; 93041